=== PATIENT | male | born 1970 | race Caucasian/White ===

== ENCOUNTER 2017-05-29 15:12 | Emergency (ER) | payer MEDICARE, MEDICAID ==
[2017-05-29 16:23] LABS: Hematocrit 40.7 % (42.0-52.0); Hemoglobin 12.3 gm/dL (13.5-18.0); Mean Cell Volume 90.6 fl (78-100); Mean Corpuscular Hemoglobin 27.4 pg (27-31); Mean Corpuscular Hgb Conc 30.2 g/dl (32-36); Mean Platelet Volume 8.4 fl (6.0-9.5); Neutrophil # 6.4 K/mm3 (1.3-6.0); Neutrophil % 74.9 % (42-75.0); Platelet Count 209 K/mm3 (150-450); Red Blood Count 4.49 M/mm3 (4.7-6.0); Red Cell Distribution Width 15.7 % (11.5-14.0); White Blood Count 8.5 K/mm3 (4.0-10.5)
[2017-05-29 16:44] LABS: Albumin * 3.3 gm/dl (3.4-5.0); Anion Gap 8.6 mmol/L (6.8-13.8); BUN/Creatinine Ratio 18.4 (9.0-21.6); Bilirubin, Total 0.2 mg/dL (0.0-1.1); Ca. Corrected For Albumin 9.2 mg/dL (8.4-10.2); Carbon Dioxide 36.3 mmol/L (24-32.6); Magnesium 2.2 mg/dL (1.2-2.8); Potassium 3.9 mmol/L (3.4-4.6); Total Protein 7.7 gm/dL (6.2-8.2); Troponin I 0.031 ng/ml (0.00-0.10)
[2017-05-29 17:46] VITALS: BP 145/82
--- NOTE | 2017-05-29 17:51 | ERNOTE ---
Abdominal HPI - General Chief Complaint: Abdominal Pain Time Seen by Provider: 05/29/17 15:17 Source: patient Exam Limitations: no limitations - Immun/Allergies/Home Medications Immunizatons: IMMUNIZATION HX Immunizations Up to Date Yes History of Influenza Vaccine Yes Hx Pneumococcal Vaccination No Allergies/Adverse Reactions: Allergies No Known Allergies Allergy (Unverified 05/01/12 16:08) per pt Home Medications: HOME MEDICATIONS HYDROcodone/ACETAMINOPHEN [Hydrocodon-Acetaminophen 5-325] 1 tab PO PRN PRN 11/05 [Last Taken 04/02/11 21:00 5/325 PER PT] Mesalamine [Asacol] 800 mg PO TID 05/01/12 [Last Taken Unknown] Metoclopramide HCl [Reglan] 5 mg PO ACHS #28 tab 05/29/17 [Last Taken Unknown] Metolazone [Zaroxolyn] 2.5 mg PO DAILY #7 tablet 05/29/17 [Last Taken Unknown] - History of Present Illness Narrative: Patient complains of increased belching and chronic shortness of breath. Though she has been going on for some time and his shortness of breath for years , most likely secondary to his profound morbid obesity. Timing: constant Quality: moderate Activities at Onset: none Associated Symptoms: Present: denies symptoms Prior Abdominal Problems: Present: none Review of Systems - Review of Systems Constitutional: Present: See HPI EYE: Present: no symptoms reported ENT: Present: no symptoms reported Respiratory: Present: shortness of breath Cardiology: Present: no symptoms reported Gastrointestinal/Abdominal: Present: See HPI - chronic Genitourinary: Present: no symptoms reported Musculoskeletal: Present: no symptoms reported Skin: Present: no symptoms reported Neurological: Present: no symptoms reported Endocrine: Present: no symptoms reported Hematologic/Lymphatic: Present: no symptoms reported Psych: Present: no symptoms reported - Patient's Past Medical History Patient History - Medical: Diabetes Type 2 Patient History - Cardiac/Respiratory: CHF, COPD, Hypertension, Hyperlipidemia Patient History - Cancer: No Hx of Cancer Patient History - Surgical Procedures: No surgical history Patient History - Other: None - Social History Living Situations: home Abuse History: No History of abuse Psych History: No pertinent hx Smoking Status: Former smoker Have you smoked in the past 12 months: No Do you dip or chew tobacco: No Alcohol Use: sober Drug Use: none - Immunizations Immunizations Up to Date: Yes Hx Pneumococcal Vaccination: No History of Influenza Vaccine: Yes Physical Exam - Physical Exam General Appearance: Present: wd/wn, alert, mild distress Head Exam: Present: normal inspection, no evidence of injury Eye Exam: Normal inspection: bilateral, PERRL: bilateral Ears, Nose, Throat: Present: normal ENT inspection, H, normal pharynx Neck: Present: normal inspection, nontender Respiratory: Present: no respiratory distress, normal breath sounds, no accessory muscle use, chest nontender, lungs clear Cardiovascular/Chest: Present: regular rate, rhythm, no murmur, normal peripheral pulses Gastrointestinal/Abdominal: Present: normal bowel sounds, nontender, nondistended, soft, no organomegaly Rectal Exam: Present: deferred Back Exam: Present: normal inspection, normal range of motion Extremity Exam: Present: normal inspection, non-tender, no edema, normal range of motion Neurological Exam: Present: alert, oriented, normal mood/affect Skin Exam: Present: normal color, warm/dry Lymphatic Exam: Present: no adenopathy ED Progress - Results and Orders Patient's Lab Results:: I have reviewed the patient's lab results. - Vital Signs Patient's Vital Signs:: I have reviewed the patient's vital signs. Vital Signs: Vital Signs 05/29/17 05/29/17 05/29/17 15:25 15:30 16:00 Temperature 36.3 C L 36.3 C L Pulse Rate 100 100 95 Respiratory 28 H 28 H 24 H Rate Blood Pressure 195/99 195/99 155/84 O2 Sat by Pulse 96 96 98 Oximetry 05/29/17 05/29/17 05/29/17 16:30 17:00 17:45 Temperature Pulse Rate 99 78 93 Respiratory 22 H 22 H 20 Rate Blood Pressure 147/98 146/78 145/82 O2 Sat by Pulse 98 99 99 Oximetry - X-Ray X-Ray #1 X-Ray: chest Interpretation: Reviewed by me X-Ray #2 X-Ray: abdomen Interpretation: Reviewed by me - Progress/Reassessment Chief Complaint: Abdominal Pain Plan - Plan Plan: Patient has known sleep apnea but has not yet made arrangements for his CPAP machine at home. I am also suspecting that he has some component of gastroparesis secondary to his diabetes. I will put the patient on 3 days of Zaroxolyn and add Reglan to the regimen to help with the gastroparesis and he agrees to follow-up with his family physician this week. Departure Clinical Impression: Gastroparesis due to DM Sleep apnea Qualifiers: Sleep apnea type: obstructive Qualified Code(s): G47.33 - Obstructive sleep apnea (adult) (pediatric) - Departure Disposition: Home self-care Condition: Good Instructions: Sleep Apnea, [id number], Gastroparesis Prescriptions: Metoclopramide HCl [Reglan] 5 mg PO ACHS #28 tab Metolazone [Zaroxolyn] 2.5 mg PO DAILY #7 tablet
== END 2017-05-29 18:00 | disposition home or self-care (01) ==
LOC: ER 15:12
DX: E11.43 Type 2 diabetes mellitus with diabetic autonomic (poly)neuropathy (principal); K31.84 Gastroparesis; G47.33 Obstructive sleep apnea (adult) (pediatric); Z87.891 Personal history of nicotine dependence

== ENCOUNTER 2017-08-02 16:44 | Emergency (ER) | payer MEDICARE, MEDICAID ==
[2017-08-02 18:06] LABS: Hematocrit 44.1 % (42.0-52.0); Mean Cell Volume 87.8 fl (78-100); Mean Corpuscular Hemoglobin 27.9 pg (27-31); Mean Corpuscular Hgb Conc 31.7 g/dl (32-36); Mean Platelet Volume 8.8 fl (6.0-9.5); Neutrophil # 4.7 K/mm3 (1.3-6.0); Neutrophil % 65.5 % (42-75.0); Platelet Count 225 K/mm3 (150-450); Red Blood Count 5.02 M/mm3 (4.7-6.0); Red Cell Distribution Width 16.8 % (11.5-14.0); White Blood Count 7.2 K/mm3 (4.0-10.5)
[2017-08-02 18:19] LABS: ALT 41 U/L (19-67); AST 22 U/L (0-48); Albumin * 3.5 gm/dl (3.4-5.0); Alkaline Phosphatase * 163 U/L (50-170); Anion Gap 7.9 mmol/L (6.8-13.8); BUN/Creatinine Ratio 15.2 (9.0-21.6); Bilirubin, Total 0.2 mg/dL (0.0-1.1); Blood Urea Nitrogen 15 mg/dL (6-23); Ca. Corrected For Albumin 9.6 mg/dL (8.4-10.2); Calcium * 9.5 mg/dL (7.9-10.9); Chloride 104 mmol/L (97-106); Glucose * 180 mg/dL (70-110); Potassium 3.9 mmol/L (3.4-4.6); Sodium 141 mmol/L (132-142)
[2017-08-02 18:38] LABS: Urine Bilirubin Negative (NEGATIVE); Urine Blood Negative /ul (NEGATIVE); Urine Ketone Negative (NEGATIVE); Urine Nitrite Negative (NEGATIVE); Urine Protein Negative (NEGATIVE); Urine Urobilinogen Normal (NORMAL); Urine pH 6.5 pH (5.0-7.0)
--- NOTE | 2017-08-02 18:38 | ERNOTE ---
Medical Problem HPI - Narrative Date of Service: 08/02/17 - General Chief Complaint: Diabetes Related Problem Time Seen by Provider: 08/02/17 17:40 Source: patient Exam Limitations: no limitations - Immun/Allergies/Home Medications Immunizations: IMMUNIZATION HX Immunizations Up to Date Yes History of Influenza Vaccine Yes Hx Pneumococcal Vaccination No Allergies/Adverse Reactions: Allergies No Known Allergies Allergy (Verified 08/02/17 17:15) per pt Home Medications: HOME MEDICATIONS Clotrimazole [Lotrimin AF] 1 appl TP BID #1 cream..g. 06/10/17 [Last Taken Unknown] Albuterol Sulfate [Proair Hfa] 8.5 gm IH Q2H PRN 06/13/17 [Last Taken Unknown] Albuterol Sulfate/Ipratropium [Duoneb 2.5-0.5MG/3ML Soln] 3 ml IH QID 06/13/17 [ Last Taken Unknown] Carvedilol [Coreg] 12.5 mg PO BID 06/13/17 [Last Taken Unknown] Cholecalciferol (Vitamin D3) [Vitamin D3] 50,000 unit PO Q7D 06/13/17 [Last Taken Unknown] Folic Acid 1 mg PO DAILY 06/13/17 [Last Taken Unknown] Nitroglycerin 0.4 mg SL PRN PRN 06/13/17 [Last Taken Unknown] Pantoprazole Sodium [Protonix] 40 mg PO DAILY 06/13/17 [Last Taken Unknown] metFORMIN HCL [Metformin HCl ER] 1,000 mg PO BID 06/13/17 [Last Taken Unknown] sulfaSALAzine [Sulfasalazine Dr] 500 mg PO TID 06/13/17 [Last Taken Unknown] Aspirin [Aspir-Low] 162 mg PO DAILY #30 tablet.dr 06/14/17 [Last Taken Unknown] Atorvastatin Calcium 20 mg PO DAILY #30 tablet 06/14/17 [Last Taken Unknown] Furosemide [Lasix] 60 mg PO BID@0800,1400 #60 tablet 06/14/17 [Last Taken Unknown] Glimepiride [Amaryl] 4 mg PO QDAC #30 tablet 06/14/17 [Last Taken Unknown] Lisinopril [Prinivil] 10 mg PO BID #60 tablet 06/14/17 [Last Taken Unknown] Sennosides/Docusate Sodium [Senokot-S] 2 tab PO HS #30 tablet 06/14/17 [Last Taken Unknown] Spironolactone [Aldactone] 25 mg PO DAILY@0800,1400 #60 tablet 06/14/17 [Last Taken Unknown] traMADol HCL [Ultram] 50 mg PO BID #60 tablet 06/14/17 [Last Taken Unknown] glipiZIDE [Glipizide] 10 mg PO BID 08/02/17 [Last Taken Unknown] glipiZIDE [Glipizide] 10 mg PO BID #20 tablet 08/02/17 [Last Taken Unknown] metFORMIN HCL [Metformin HCl] 1,000 mg PO BID 08/02/17 [Last Taken Unknown] metFORMIN HCL [Metformin HCl] 1,000 mg PO BID #20 tablet 08/02/17 [Last Taken Unknown] - History of Present History Narrative: Patient presents for high blood sugars. He relates he has not been taking his glipizide or metformin. He relates they were not working. He has a appointment with Dr Chambers next week for his blood sugars as he just moved here. His BS was high so he came to the ED. He denies any Sx with this. no CP or SOB, no fever, no vomiting, no abdominal pain. No fever or dysuria. He has no acute complaints other than his blood sugar. Timing: intermittent Severity: mild Modifying Factors - (Improves): Present: other - nothing Modifying Factors - (Worsens): Present: other - nothing Review of Systems - Review of Systems Constitutional: Absent: fever EYE: Absent: vision changes ENT: Absent: sore throat Respiratory: Absent: shortness of breath Cardiology: Absent: chest pain Gastrointestinal/Abdominal: Absent: vomiting, abdominal pain Genitourinary: Absent: dysuria Skin: Present: other - chronic skin changes on his legs, acute rash or change is denied Neurological: Absent: weakness - Patient's Past Medical History Patient History - Medical: Diabetes Type 1, Obesity, Other Patient History - Cardiac/Respiratory: CHF, COPD, Hypertension, Hyperlipidemia, Sleep Apnea Patient History - Cancer: No Hx of Cancer Patient History - Surgical Procedures: No surgical history Patient History - Other: None - Family History Mother Family History - Medical: Diabetes Type 2 Family History - Cardiac/Respiratory: CHF Family History - Cancer: No pertinent family hx Father Family History - Medical: , No pertinent hx - Social History Living Situations: home Abuse History: No History of abuse Psych History: No pertinent hx Smoking Status: Former smoker Alcohol Use: none Drug Use: none - Immunizations Immunizations Up to Date: Yes Hx Pneumococcal Vaccination: No History of Influenza Vaccine: Yes Physical Exam - Physical Exam General Appearance: Present: alert, no apparent distress Head Exam: Present: normal inspection, no evidence of injury Eye Exam: Normal inspection: bilateral, PERRL: bilateral Ears, Nose, Throat: Present: normal ENT inspection Neck: Present: normal inspection Respiratory: Present: no respiratory distress, normal breath sounds, no accessory muscle use, lungs clear Cardiovascular/Chest: Present: regular rate, rhythm Gastrointestinal/Abdominal: Present: normal bowel sounds, nontender, soft Back Exam: Present: normal range of motion Extremity Exam: Present: other - no deformity Neurological Exam: Present: alert, no motor/sensory deficits Skin Exam: Present: normal color, warm/dry, other - no cellulitis noted ED Progress - Results and Orders Patient's Lab Results:: I have reviewed the patient's lab results. - Vital Signs Patient's Vital Signs:: I have reviewed the patient's vital signs. Vital Signs: Vital Signs 08/02/17 17:12 Temperature 36.4 C L Pulse Rate 104 H Respiratory 22 H Rate Blood Pressure 145/119 O2 Sat by Pulse 97 Oximetry - Progress/Reassessment Chief Complaint: Diabetes Related Problem Progress Note-Subjective: 08/02/17 19:22 He did not want to wait here any longer. Was requesting to go home. I will restart his home metformin and glipizde that he is out of for short term until he gets in to see Dr Chambers next week. No other acute life or limb threat found. He states he has the equipment to check his blood sugar at home. Departure Clinical Impression: Has run out of medications, Hyperglycemia - Departure Disposition: Home self-care Condition: Stable Instructions: Hyperglycemia, [id number] Additional Instructions: Rest. Fluids. Take your home medications as directed. Monitor your blood sugat at home as directed. Keep your appointment next week with Dr Chambers. Return if your condition worsens or changes in any way. Referrals: Fab Chambers DO [Primary Care Provider] - Prescriptions: glipiZIDE [Glipizide] 10 mg PO BID #20 tablet metFORMIN HCL [Metformin HCl] 1,000 mg PO BID #20 tablet
[2017-08-02 18:47] LABS: Urine Appearance Clear; Urine Bacteria 3+; Urine Color Yellow; Urine RBC 0-5 /hpf (0-5); Urine WBC 0-5 /hpf (0-5)
[2017-08-02 19:06] VITALS: BP 162/110
== END 2017-08-02 19:36 | disposition home or self-care (01) ==
LOC: ER 16:44
DX: E78.5 Hyperlipidemia, unspecified; R73.9 Hyperglycemia, unspecified; Z87.891 Personal history of nicotine dependence; Z76.0 Encounter for issue of repeat prescription; J44.9 Chronic obstructive pulmonary disease, unspecified; I10 Essential (primary) hypertension; I50.9 Heart failure, unspecified

== ENCOUNTER 2018-09-15 19:00 | Observation (INO) ==
[2018-09-15] MEDS ORDERED: ASPIRIN 81 MG TAB.CHEW PO ONE (19:12)
--- NOTE | 2018-09-15 19:14 | ERNOTE ---
Chest Pain/Cardiac HPI Date of Service: 09/15/18 Chief Complaint: Chest Pain Time Seen by Provider: 09/15/18 19:13 Source: patient Exam Limitations: no limitations Immunizations: IMMUNIZATION HX Immunizations Up to Date Yes History of Influenza Vaccine Yes Hx Pneumococcal Vaccination Yes Allergies/Adverse Reactions: Allergies No Known Allergies Allergy (Verified 09/04/18 13:39) per pt Home Medications: HOME MEDICATIONS Cholecalciferol (Vitamin D3) [Vitamin D3] 1,000 unit PO DAILY 09/11/17 [Last Taken 01/10/18] Acetaminophen [Tylenol] 650 mg PO Q6H PRN tab 09/12/17 [Last Taken 01/11/18] Albuterol Sulfate [Ventolin HFA] 2 puff IH Q4H PRN #1 inhaler 09/12/17 [Last Taken 01/07/18] Nitroglycerin 0.4 mg SL PRN PRN #25 tab.subl 09/12/17 [Last Taken 01/11/18] diphenoxylate-atropine 2.5 mg-0.025 mg tablet 1 tab PO Q6H PRN #60 tab 01/12/18 [Last Taken Unknown] carvedilol 12.5 mg tablet 12.5 mg PO DAILY #30 tab 05/11/18 [Last Taken Unknown] glipizide 5 mg tablet 5 mg PO BID #60 tab 05/11/18 [Last Taken Unknown] omeprazole 40 mg capsule,delayed release 40 mg PO DAILY #30 cap 05/11/18 [Last Taken Unknown] pregabalin 300 mg capsule 300 mg PO BID #0.1 cap 05/30/18 [Last Taken Unknown] Loperamide HCl [Imodium A-D] 2 mg PO BID #60 tab 06/25/18 [Last Taken Unknown] lancets 18 gauge See Dose Instructions .ROUTE .MEDSUPPLY #100 ea 08/30/18 [Last Taken Unknown] atorvastatin 20 mg tablet 20 mg PO HS #30 tab 09/04/18 [Last Taken Unknown] dicyclomine 20 mg tablet 20 mg PO QID #120 tab 09/04/18 [Last Taken Unknown] insulin detemir (U-100) 100 unit/mL (3 mL) subcutaneous pen 25 unit SUBCUT HS #15 ml 09/04/18 [Last Taken Unknown] lisinopril 20 mg tablet 20 mg PO DAILY #30 tab 09/04/18 [Last Taken Unknown] metformin 500 mg tablet 500 mg PO BID #60 tab 09/04/18 [Last Taken Unknown] potassium chloride ER 20 mEq tablet,extended release(part/cryst) 20 meq PO DAILY #30 tablet.sa 09/04/18 [Last Taken Unknown] sulfasalazine 500 mg tablet,delayed release See Rx Instructions PO .COMPLEX #270 tab 09/04/18 [Last Taken Unknown] pen needle, diabetic 31 gauge x 5/16" See Dose Instructions .ROUTE .MEDSUPPLY #100 ea 09/05/18 [Last Taken Unknown] Aspirin [Aspir-Low] 81 mg PO DAILY 09/15/18 [Last Taken Unknown] Furosemide [Lasix] 80 mg PO BID 09/15/18 [Last Taken Unknown] Pain Score #1 Pain Score: 7 Narrative: The patient is a 48 year old male who presents for left anterior chest heaviness which has been present for 2 hours. There are associated symptoms of dyspnea and diarrhea. The patient reports left anterior chest heaviness, 01/03. There are no alleviating factors. There are no aggravating factors. Previous treatments have included: Nitro x3 tabs at home without improvement. The past medical history includes: COPD, GERD, DM, CHF, pacemaker, HLD and arthritis. The social history is positive for former smoker. The patient has had no known ill contacts. Patient states he was watching TV when chest heaviness began. Patient denies weight gain and states he has lost 20 pounds over the past few months. Review of Systems - Review of Systems Constitutional: Present: fatigue. Absent: recent illness, fever EYE: Present: no symptoms reported ENT: Present: no symptoms reported. Absent: ear pain, nose congestion, nasal drainage, sore throat Respiratory: Present: shortness of breath. Absent: cough Cardiology: Present: chest pain. Absent: edema Gastrointestinal/Abdominal: Present: diarrhea. Absent: nausea, vomiting, abdominal pain Genitourinary: Present: no symptoms reported. Absent: dysuria Musculoskeletal: Present: no symptoms reported Skin: Present: no symptoms reported. 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 Maxed out on the Sulfonourea and can not increase the Metformin due to diarrhea. 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 Onset Date: Unknown Bilateral primary osteoarthritis of knee Onset Date: ~06/24/17 COPD (chronic obstructive pulmonary disease) Onset Date: Unknown Chronic GERD Hyperlipidemia due to dietary fat intake Surgical History: Surgical History (Last Reviewed 09/15/18 @ 19:20 by VU Monterroso) History of placement of internal cardiac defibrillator Onset Date: 03/28/18 Hx of colonoscopy Onset Date: Unknown Has had x7 for ulcerative colitis Hx of flexible sigmoidoscopy Onset Date: ~04/07/12 Hx of right and left heart catheterization Onset Date: Unknown Family History: Family History (Last Reviewed 09/15/18 @ 19:20 by VU Monterroso) Brother Diabetes Hypertension Hyperlipemia Father , @ 65 Myocardial infarction Mother Diabetes Heart disease Sister Seizures Social History: Preferred Language Estonian Smoking Status Former smoker Abuse History No History of abuse Psych History No pertinent hx Alcohol Use none Drug Use none (Last Updated 09/04/18 @ 15:01 by Fab Chambers DO) No Social History Section defined Physical Exam - Physical Exam General Appearance: Present: wd/wn, alert, no apparent distress Head Exam: Present: normal inspection Eye Exam: Normal inspection: bilateral Neck: Present: normal inspection, nontender Respiratory: Present: no respiratory distress, normal breath sounds, no accessory muscle use, chest nontender, lungs clear Cardiovascular/Chest: Present: regular rate, rhythm Gastrointestinal/Abdominal: Present: normal bowel sounds, nontender, nondistended, soft, no organomegaly Extremity Exam: Present: no edema Neurological Exam: Present: alert, oriented, normal mood/affect Skin Exam: Present: normal color, warm/dry Progress - Date and Time Seen: Date and Time: 09/15/18 19:38 PERC rule negative. 09/15/18 20:10 Discussed case with and will admit for observation chest pain. Pain 08/06 upon admission. - Results and Orders Patient's Lab Results:: I have reviewed the patient's lab results. - Vital Signs Patient's Vital Signs:: I have reviewed the patient's vital signs. Vital Signs: Vital Signs 09/15/18 19:03 Pulse Rate 86 Respiratory Rate 14 Blood Pressure 140/81 H O2 Sat by Pulse Oximetry 100 - EKG EKG #1 EKG: NSR EKG read: Reviewed by me - X-Ray X-Ray #1 X-Ray: chest Interpretation: Reviewed by me X-ray Comments: No acute cardiopulmonary abnormalities. Pacemaker present to left anterior chest. - Progress/Reassessment Chief Complaint: Chest Pain Progress:: Improved Departure Clinical Impression: Chest pain Qualifiers: Chest pain type: unspecified Qualified Code(s): R07.9 - Chest pain, unspecified - Departure Disposition: Still a patient Condition: Good
[2018-09-15 19:40] LABS: Hematocrit 37.5 % (42.0-52.0); Hemoglobin 11.9 gm/dL (13.5-18.0); Mean Cell Volume 96.4 fl (78-100); Mean Corpuscular Hemoglobin 30.6 pg (27-31); Mean Corpuscular Hgb Conc 31.7 g/dl (32-36); Mean Platelet Volume 8.5 fl (8-11.3); Neutrophil # 3.9 K/mm3 (1.3-6.0); Platelet Count 275 K/mm3 (150-450); Red Blood Count 3.89 M/mm3 (4.7-6.0); Red Cell Distribution Width 15.2 % (11.5-14.0); White Blood Count 6.7 K/mm3 (4.0-10.5)
[2018-09-15 19:43] LABS: Prothrombin Time (Patient) 10.1 Seconds (9.1-10.7)
[2018-09-15 19:47] LABS: INR 1.02 INR (0.92-1.08)
[2018-09-15 20:02] LABS: ALT 19 U/L (19-67); AST 17 U/L (0-48); Albumin * 3.4 gm/dl (3.4-5.0); Alkaline Phosphatase * 143 U/L (50-170); Anion Gap 12.3 mmol/L (6.8-13.8); BNP * 45 pg/mL (5-140); BUN/Creatinine Ratio 11.7 (9.0-21.6); Bilirubin, Total 0.2 mg/dL (0.0-1.1); Blood Urea Nitrogen 13 mg/dL (6-23); Ca. Corrected For Albumin 9.2 mg/dL (8.4-10.2); Carbon Dioxide 29.9 mmol/L (24-32.6); Chloride 102 mmol/L (97-106); Glucose * 110 mg/dL (70-110); Potassium 3.2 mmol/L (3.4-4.6); Sodium 141 mmol/L (132-142); Total Protein 7.7 gm/dL (6.2-8.2)
[2018-09-15 20:04] LABS: Troponin I Less than 0.017 ng/mL (0.00-0.10)
[2018-09-15] MEDS ORDERED: POTASSIUM CHLORIDE 20 MEQ TABLET.SA PO ONE (20:33)
[2018-09-15] MEDS ORDERED: NITROGLYCERIN 0.4 MG/TAB BTL SL PRN (20:38)
[2018-09-15] MEDS ORDERED: ALBUTEROL SULFATE 200 PUFF INHALER IH PRN (20:38)
[2018-09-15] MEDS ORDERED: DIPHENOXYLATE HCL/ATROP SULF 2.5 MG TABLET PO PRN (20:38)
[2018-09-15] MEDS ORDERED: ACETAMINOPHEN 325 MG TABLET PO PRN (20:38)
--- NOTE | 2018-09-15 21:06 | HP ---
Chief Complaint - Chief Complaint Date of Service: 09/15/18 Time of Service: 20:51 Chief Complaint: I chest pain that started this evening History of Present Illness: 48-year-old male with past medical history of ulcerative colitis, CHF, COPD, hyperlipidemia, CAD, GERD, type 2 diabetes, ICD placement, hypertension, came to our ER due to left-sided retrosternal chest pain of 7 out of 10 intensity radiating to the right side of his neck. Patient reports he had just returned from a [address] trip and was preparing to go to bed, when suddenly while sitting down he started feeling chest heaviness accompanied by mild shortness of breath. He denies any alleviating or aggravating factors. Patient has an extensive cardiac history and sees a duplication specialist who prescribed him nitroglycerin in case of chest pain. Patient reports that he took 3 doses of nitroglycerin but the chest discomfort did not improve and that when he decided to come to the ER. Medical History (Last Reviewed 09/15/18 @ 19:20 by VU Monterroso) Gastroparesis due to DM (Chronic) CHF due to valvular disease (Chronic) Edema extremities (Chronic) Uncontrolled diabetes mellitus (Chronic) BSs in the 200. Maxed out on the Sulfonourea and can not increase the Metformin due to diarrhea. Pacemaker (Chronic) Gastro-esophageal reflux disease with esophagitis (Chronic) Chest pain (Resolved) Chest pain made worse by breathing (Resolved) Chest wall pain following surgery (Resolved) Colitis Obesity, morbid (more than 100 lbs over ideal weight or BMI > 40) Onset Date: Unknown BMI 40.0 -49.9 Pacemaker Tachycardia Type 2 diabetes mellitus colitis Arthritis Onset Date: Unknown Atherosclerotic heart disease [place] coronary artery w/angina pectoris Onset Date: Unknown Bilateral primary osteoarthritis of knee Onset Date: ~06/24/17 COPD (chronic obstructive pulmonary disease) Onset Date: Unknown Chronic GERD Hyperlipidemia due to dietary fat intake Surgical History: Surgical History (Last Reviewed 09/15/18 @ 19:20 by VU Monterroso) History of placement of internal cardiac defibrillator Onset Date: 03/28/18 Hx of colonoscopy Onset Date: Unknown Has had x7 for ulcerative colitis Hx of flexible sigmoidoscopy Onset Date: ~04/07/12 Hx of right and left heart catheterization Onset Date: Unknown Family History: Family History (Last Reviewed 09/15/18 @ 19:20 by VU Monterroso) Brother Diabetes Hypertension Hyperlipemia Father , @ 65 Myocardial infarction Mother Diabetes Heart disease Sister Seizures Social History: Preferred Language Honduran Smoking Status Former smoker Abuse History No History of abuse Psych History No pertinent hx Alcohol Use none Drug Use none (Last Updated 09/04/18 @ 15:01 by Fab Chambers DO) No Social History Section defined Review Of Systems (GEN) - Review of Systems Generalized/Overall Review: Present: No Symptoms Reported EENTM: Present: No Symptoms Reported Respiratory: Present: Shortness of Breath Cardiac: Present: Chest Pain Abdominal: Present: No Symptoms Reported Genitourinary: Present: No Symptoms Reported Musculoskeletal: Present: No Symptoms Reported Neurological: Present: No Symptoms Reported Skin: Present: No Symptoms Reported Endocrine: Present: No Symptoms Reported Immunizations: IMMUNIZATION HX Immunizations Up to Date Yes History of Influenza Vaccine Yes Hx Pneumococcal Vaccination Yes Allergies/Adverse Reactions: Allergies Allergy/AdvReac Type Severity Reaction Status Date / Time No Known Allergies Allergy Verified 09/04/18 13:39 Home Medications: HOME MEDICATIONS Cholecalciferol (Vitamin D3) [Vitamin D3] 1,000 unit PO DAILY 09/11/17 [Last Taken 01/10/18] Acetaminophen [Tylenol] 650 mg PO Q6H PRN tab 09/12/17 [Last Taken 01/11/18] Albuterol Sulfate [Ventolin HFA] 2 puff IH Q4H PRN #1 inhaler 09/12/17 [Last Taken 01/07/18] Nitroglycerin 0.4 mg SL PRN PRN #25 tab.subl 09/12/17 [Last Taken 01/11/18] diphenoxylate-atropine 2.5 mg-0.025 mg tablet 1 tab PO Q6H PRN #60 tab 01/12/18 [Last Taken Unknown] carvedilol 12.5 mg tablet 12.5 mg PO DAILY #30 tab 05/11/18 [Last Taken Unknown] glipizide 5 mg tablet 5 mg PO BID #60 tab 05/11/18 [Last Taken Unknown] omeprazole 40 mg capsule,delayed release 40 mg PO DAILY #30 cap 05/11/18 [Last Taken Unknown] pregabalin 300 mg capsule 300 mg PO BID #0.1 cap 05/30/18 [Last Taken Unknown] Loperamide HCl [Imodium A-D] 2 mg PO BID #60 tab 06/25/18 [Last Taken Unknown] lancets 18 gauge See Dose Instructions .ROUTE .MEDSUPPLY #100 ea 08/30/18 [Last Taken Unknown] atorvastatin 20 mg tablet 20 mg PO HS #30 tab 09/04/18 [Last Taken Unknown] dicyclomine 20 mg tablet 20 mg PO QID #120 tab 09/04/18 [Last Taken Unknown] insulin detemir (U-100) 100 unit/mL (3 mL) subcutaneous pen 25 unit SUBCUT HS #15 ml 09/04/18 [Last Taken Unknown] lisinopril 20 mg tablet 20 mg PO DAILY #30 tab 09/04/18 [Last Taken Unknown] metformin 500 mg tablet 500 mg PO BID #60 tab 09/04/18 [Last Taken Unknown] potassium chloride ER 20 mEq tablet,extended release(part/cryst) 20 meq PO DAILY #30 tablet.sa 09/04/18 [Last Taken Unknown] sulfasalazine 500 mg tablet,delayed release See Rx Instructions PO .COMPLEX #270 tab 09/04/18 [Last Taken Unknown] pen needle, diabetic 31 gauge x 5/16" See Dose Instructions .ROUTE .MEDSUPPLY #100 ea 09/05/18 [Last Taken Unknown] Aspirin [Aspir-Low] 81 mg PO DAILY 09/15/18 [Last Taken Unknown] Furosemide [Lasix] 80 mg PO BID 09/15/18 [Last Taken Unknown] Exam - Exam Vital Signs: Vital Signs - Last Taken Temp 36.0 C 09/15/18 20:34 Pulse 82 09/15/18 20:34 Resp 16 09/15/18 20:34 BP 113/71 09/15/18 20:34 Pulse Ox 98 09/15/18 20:34 Constitutional: Present: Alert, Oriented x3, Cooperative, Well developed, Well nourished, No distress, Morbidly obese ENT Exam: Present: normal ENT inspection, hearing grossly normal, pharynx normal, TMs normal Eye Exam: bilateral eye: normal inspection, PERRL, EOMI Neck: Present: non-tender, full range of motion, supple, normal inspection, trachea midline Back Exam: Present: normal inspection, no CVA tenderness, no vertebral tenderness Breasts: Present: Exam deferred Respiratory: Present: chest non-tender, lungs clear, normal breath sounds, no respiratory distress, no accessory muscle use Cardiovascular/Chest: Present: normal peripheral pulses, regular rate, rhythm, no chest tenderness, no edema, no gallop, no JVD, no murmur Peripheral Pulses: carotid (R): 3+, carotid (L): 3+, femoral (R): 3+, femoral (L): 3+, dorsalis-pedis (R): 3+, dorsalis-pedis (L): 3+ Abdomen: Present: Normal bowel sounds, soft, nondistended, no rebound tenderness, no hepatospenomegaly, no masses, obese, tender - Lower abdominal tenderness /Rectal: Present: Exam deferred Extremity: Present: normal range of motion, non-tender, normal inspection, no pedal edema, no calf tenderness Skin Exam: Present: normal color, warm/dry, no cyanosis Lymphatic: Present: no adenopathy 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, normal cerebellar test, no motor/sensory deficits, alert, normal mood/affect, oriented x 3 Appearance: Present: appropriate appearance, appropriate insight, neat, no memory impairment Eye contact: Present: cooperative, good eye contact, normal speech Thoughts: Present: normal thought pattern Diagnostic Studies: Abnormal Lab Results 09/15/18 09/15/18 Range/Units 19:35 19:35 RBC 3.89 L (4.7-6.0) M/mm3 Hgb 11.9 L (13.5-18.0) gm/dL Hct 37.5 L (42.0-52.0) % MCHC 31.7 L (32-36) g/dl RDW 15.2 H (11.5-14.0) % Monocytes % 13.6 H (0.0-9) % Eosinophils % 3.1 H (0.0-3.0) % Potassium 3.2 L (3.4-4.6) mmol/L Laboratory Results WBC 6.7 K/mm3 (4.0-10.5) 09/15/18 19:35 RBC 3.89 M/mm3 (4.7-6.0) L 09/15/18 19:35 Hgb 11.9 gm/dL (13.5-18.0) L 09/15/18 19:35 Hct 37.5 % (42.0-52.0) L 09/15/18 19:35 MCV 96.4 fl (78-100) 09/15/18 19: MCH 30.6 pg (27-31) 09/15/18 19: MCHC 31.7 g/dl (32-36) L 09/15/18 19:35 RDW 15.2 % (11.5-14.0) H 09/15/18 19:35 Plt Count 275 K/mm3 (150-450) 09/15/18 19: MPV 8.5 fl (8-11.3) 09/15/18 19:35 Immature Gran % (Auto) 0.40 % (0.001-0.429) 09/15/18: Immature Gran # (Auto) 0.03 K/mm3 (0.000-0.0310) 09/15/18 19:35 Neutrophils % 58.0 % (42-75.0) 09/15/18 19:35 Lymphocytes % 24.0 % (20-51) 09/15/18 19:35 Monocytes % 13.6 % (0.0-9) H 09/15/18 19:35 Eosinophils % 3.1 % (0.0-3.0) H 09/15/18: Basophils % 0.9 % (0.0-1.0) 09/15/18: Nucleated RBC % 0.0 k/mm3 (0-1) 09/15/18 19: Neutrophils # 3.9 K/mm3 (1.3-6.0) 09/15/18 19: Lymphocytes # 1.60 k/mm3 (1.5-3.5) 09/15/18 19: Monocytes # 0.9 k/mm3 (0.0-1.0) 09/15/18 19: Eosinophils # 0.2 k/mm3 (0.0-0.7) 09/15/18 19: Absolute Basophils 0.1 k/mm3 (0.0-0.1) 09/15/18 19:35 PT 10.1 Seconds (9.1-10.7) 09/15/18 19:20 INR (Anticoag Therapy) 1.02 INR (0.92-1.08) 09/15/18 19:20 PTT ([place]) 26.0 Seconds (24-32) 09/15/18 19:20 Sodium 141 mmol/L (132-142) 09/15/18 19:35 Plasma Sodium 141 mmol/L (130-142) 09/15/18 19:35 Potassium 3.2 mmol/L (3.4-4.6) L 09/15/18 19:35 Chloride 102 mmol/L (97-106) 09/15/18 19:35 Carbon Dioxide 29.9 mmol/L (24-32.6) 09/15/18 19:35 Anion Gap 12.3 mmol/L (6.8-13.8) 09/15/18 19:35 BUN 13 mg/dL (6-23) 09/15/18 19:35 Creatinine 1.11 mg/dL (0.4-1.4) 09/15/18 19:35 Est GFR (Non-Af Amer) 75 mL/min (60-130) 09/15/18 19:35 BUN/Creatinine Ratio 11.7 (9.0-21.6) 09/15/18 19:35 Random Glucose 110 mg/dL (70-110) 09/15/18 19:35 Calcium 9.0 mg/dL (7.9-10.9) 09/15/18 19:35 Calcium Adj for Albumin 9.2 mg/dL (8.4-10.2) 09/15/18 19:35 Total Bilirubin 0.2 mg/dL (0.0-1.1) 09/15/18 19:35 AST 17 U/L (0-48) 09/15/18 19:35 ALT 19 U/L (19-67) 09/15/18 19:35 Alkaline Phosphatase 143 U/L (50-170) 09/15/18 19:35 Troponin I Less than 0.017 ng/mL (0.00-0.10) 09/15/18 19:35 B-Natriuretic Peptide 45 pg/mL (5-140) 09/15/18 19:35 Total Protein 7.7 gm/dL (6.2-8.2) 09/15/18 19:35 Albumin 3.4 gm/dl (3.4-5.0) 09/15/18 19:35 Assessment/Plan - Narrative Narrative: After evaluating patient and the medical record decision to admit patient to observation for the ruling out of myocardial infarction was taken. Patient was was administered aspirin in the ER as well as nitroglycerin and since then he reports resolution of chest pain and shortness of breath. Vitals remained stable and patient does not present any new symptoms. He was placed on telemetry and cardiac troponins were ordered, the first 1 was negative so repeat troponin was ordered. EKG demonstrated a normal sinus rhythm with adequate rate. We will reevaluate next set of troponins and patient in the morning. In the meantime patient will be administered his usual home medications and we will monitor him closely. - Assessment/Plan (1) Chest pain due to coronary artery disease Problem: Acute (2) Diabetes 1.5, managed as type 2 Problem: Acute (3) Morbid obesity due to excess calories Problem: Acute (4) Ruled out for myocardial infarction Problem: Acute
[2018-09-15] MEDS ORDERED: ROSUVASTATIN CALCIUM 10 MG TABLET PO SCH (21:15)
[2018-09-15] MEDS ORDERED: PREGABALIN 75 MG CAPSULE PO SCH (21:30)
[2018-09-15] MEDS ORDERED: INSULIN DETEMIR 100 UNITS/ML VIAL SC SCH (21:30)
[2018-09-15] MEDS ORDERED: POTASSIUM CHLORIDE 20 MEQ TABLET.SA ONE (23:01)
[2018-09-15] MEDS: FUROSEMIDE 80 MG TABLET PO SCH (23:10)
[2018-09-15] MEDS: metFORMIN HCL 500 MG TABLET PO SCH (23:10)
[2018-09-15] MEDS: glipiZIDE 5 MG TABLET PO SCH (23:11)
[2018-09-15] MEDS: CHOLECALCIFEROL 1,000 UNIT CAPSULE PO SCH (23:11)
[2018-09-15] MEDS: DICYCLOMINE HCL 20 MG TABLET PO SCH (23:19)
[2018-09-16] MEDS ORDERED: OMEPRAZOLE 20 MG CAPSULE.SA PO SCH ×2 (07:00)
[2018-09-16] MEDS ORDERED: PANTOPRAZOLE SODIUM 40 MG TABLET.EC PO SCH (07:00)
[2018-09-16] MEDS ORDERED: sulfaSALAzine 500 MG TABLET PO SCH (09:00)
[2018-09-16] MEDS ORDERED: CARVEDILOL 12.5 MG TABLET PO SCH (09:00)
[2018-09-16] MEDS ORDERED: LISINOPRIL 20 MG TABLET PO SCH (09:00)
[2018-09-16] MEDS ORDERED: glipiZIDE 5 MG TABLET PO SCH (09:00)
[2018-09-16] MEDS ORDERED: POTASSIUM CHLORIDE 20 MEQ TABLET.SA PO SCH (09:00)
[2018-09-16] MEDS ORDERED: ASPIRIN 81 MG TABLET.DR PO SCH (09:00)
[2018-09-16] MEDS ORDERED: LOPERAMIDE HCL 2 MG CAPSULE PO SCH (09:00)
[2018-09-16] MEDS: DICYCLOMINE HCL 20 MG TABLET PO SCH (09:18)
[2018-09-16] MEDS: metFORMIN HCL 500 MG TABLET PO SCH (09:18)
[2018-09-16] MEDS: FUROSEMIDE 80 MG TABLET PO SCH (09:19)
[2018-09-16] MEDS: CHOLECALCIFEROL 1,000 UNIT CAPSULE PO SCH (09:19)
[2018-09-16] MEDS: glipiZIDE 5 MG TABLET PO SCH (09:20)
--- NOTE | 2018-09-16 09:54 | DS ---
(1) Chest pain due to coronary artery disease Problem: Resolved (2) Diabetes 1.5, managed as type 2 Problem: Chronic (3) Morbid obesity due to excess calories Problem: Chronic (4) Ruled out for myocardial infarction Problem: Ruled-out Description of Stay: 48-year-old male admitted for chest pain rule out myocardial infarction was evaluated at bedside and was found to be afebrile and in no acute distress. Patient reports significant improvement and complete resolution of his chest pain as well as his shortness of breath. He said he had a good night and denies any new symptoms. Follow-up cardiac enzymes were negative as well as EKG. Therefore given these findings decision to discharge patient home with instructions to continue his routine medications and to follow-up with his PCP was taken. Procedures Performed: none Results and Findings: Lab Pending Results 09/15/18 19:20: PT 10.1, INR (Anticoag Therapy) 1.02, PTT ([place]) 26.0 09/15/18 19:35: WBC 6.7, RBC 3.89 L, Hgb 11.9 L, Hct 37.5 L, MCV 96.4, MCH 30.6, MCHC 31.7 L, RDW 15.2 H, Plt Count 275, MPV 8.5, Immature Gran % (Auto) 0.40, Immature Gran # (Auto) 0.03, Neutrophils % 58.0, Lymphocytes % 24.0, Monocytes % 13.6 H, Eosinophils % 3.1 H, Basophils % 0.9, Nucleated RBC % 0.0, Neutrophils # 3.9, Lymphocytes # 1.60, Monocytes # 0.9, Eosinophils # 0.2, Absolute Basophils 0.1 09/15/18 19:35: Sodium 141, Plasma Sodium 141, Potassium 3.2 L, Chloride 102, Carbon Dioxide 29.9, Anion Gap 12.3, BUN 13, Creatinine 1.11, Est GFR (Non-Af Amer) 75, BUN/Creatinine Ratio 11.7, Random Glucose 110, Calcium 9.0, Calcium Adj for Albumin 9.2, Total Bilirubin 0.2, AST 17, ALT 19, Alkaline Phosphatase 143, Troponin I Less than 0.017, B-Natriuretic Peptide 45, Total Protein 7.7, Albumin 3.4 09/16/18 02:00: Troponin I Less than 0.017 Discharge Location: Home Disposition: Home self-care Condition: Good Discharge Activity: Activity as tolerated Discharge Diet: Consistent carbs Referrals: Fab Chambers DO [Primary Care Provider] - Complete Home Medications List: Complete Home Medication List: Cholecalciferol (Vitamin D3) [Vitamin D3] 1,000 unit PO DAILY 09/11/17 Acetaminophen [Tylenol] 650 mg PO Q6H PRN tab 09/12/17 Albuterol Sulfate [Ventolin HFA] 2 puff IH Q4H PRN #1 inhaler 09/12/17 Nitroglycerin 0.4 mg SL PRN PRN #25 tab.subl 09/12/17 diphenoxylate-atropine 2.5 mg-0.025 mg tablet 1 tab PO Q6H PRN #60 tab 01/12/18 carvedilol 12.5 mg tablet 12.5 mg PO DAILY #30 tab 05/11/18 Loperamide HCl [Imodium A-D] 2 mg PO BID #60 tab 06/25/18 lancets 18 gauge See Dose Instructions .ROUTE .MEDSUPPLY #100 ea 08/30/18 atorvastatin 20 mg tablet 20 mg PO HS #30 tab 09/04/18 dicyclomine 20 mg tablet 20 mg PO QID #120 tab 09/04/18 insulin detemir (U-100) 100 unit/mL (3 mL) subcutaneous pen 25 unit SUBCUT HS #15 ml 09/04/18 lisinopril 20 mg tablet 20 mg PO DAILY #30 tab 09/04/18 metformin 500 mg tablet 500 mg PO BID #60 tab 09/04/18 potassium chloride ER 20 mEq tablet,extended release(part/cryst) 20 meq PO DAILY #30 tablet.sa 09/04/18 pen needle, diabetic 31 gauge x 5/16" See Dose Instructions .ROUTE .MEDSUPPLY #100 ea 09/05/18 Aspirin [Aspir-Low] 81 mg PO DAILY 09/15/18 Furosemide [Lasix] 80 mg PO BID 09/15/18 Omeprazole 40 mg PO DAILY 09/15/18 glipiZIDE [Glipizide] 5 mg PO BID 09/15/18 sulfaSALAzine [Azulfidine] 1,500 mg PO TID 09/15/18
[2018-09-16 10:33] VITALS: BP 127/87
== END 2018-09-16 10:35 | disposition home or self-care (01) ==
LOC: MS 19:00 → ER 19:00 → MS 20:19
PROVIDERS: ADMIT Family Medicine; ATTEND Family Medicine
CPT/HCPCS: 36415; 71020; 71046; 80053; 83519; 83880; 84484; 85025; 85610; 85730; 93005; 94660; 96372; 99285; G0378

== ENCOUNTER 2018-11-11 17:57 | Observation (INO) ==
[2018-11-11] MEDS ORDERED: ASPIRIN 81 MG TAB.CHEW PO ONE (18:13)
--- NOTE | 2018-11-11 18:16 | ERNOTE ---
Medical Problem HPI - Narrative Date of Service: 11/11/18 - General Chief Complaint: Diabetes Related Problem Time Seen by Provider: 11/11/18 18:08 Source: patient Exam Limitations: no limitations - Immun/Allergies/Home Medications Immunizations: IMMUNIZATION HX Immunizations Up to Date Yes History of Influenza Vaccine Yes Hx Pneumococcal Vaccination No Allergies/Adverse Reactions: Allergies No Known Allergies Allergy (Verified 11/11/18 18:03) per pt Home Medications: HOME MEDICATIONS Cholecalciferol (Vitamin D3) [Vitamin D3] 1,000 unit PO DAILY 09/11/17 [Last Taken 01/10/18] Albuterol Sulfate [Ventolin HFA] 2 puff IH Q4H PRN #1 inhaler 09/12/17 [Last Taken 01/07/18] Nitroglycerin 0.4 mg SL PRN PRN #25 tab.subl 09/12/17 [Last Taken 01/11/18] atorvastatin 20 mg tablet 20 mg PO HS #30 tab 09/04/18 [Last Taken Unknown] insulin detemir (U-100) 100 unit/mL (3 mL) subcutaneous pen 25 unit SUBCUT HS #15 ml 09/04/18 [Last Taken Unknown] lisinopril 20 mg tablet 20 mg PO DAILY #30 tab 09/04/18 [Last Taken Unknown] potassium chloride ER 20 mEq tablet,extended release(part/cryst) 20 meq PO DAILY #30 tablet.sa 09/04/18 [Last Taken Unknown] Aspirin [Aspir-Low] 81 mg PO DAILY 09/15/18 [Last Taken Unknown] glipiZIDE [Glipizide] 5 mg PO BID 09/15/18 [Last Taken Unknown] metformin 500 mg tablet 500 mg PO BID #60 tab 09/27/18 [Last Taken Unknown] carvedilol 12.5 mg tablet 12.5 mg PO DAILY #30 tab 09/28/18 [Last Taken Unknown] dicyclomine 20 mg tablet 20 mg PO QID #120 tab 09/28/18 [Last Taken Unknown] fenoprofen 600 mg tablet 600 mg PO TID #90 tab 09/28/18 [Last Taken Unknown] omeprazole 40 mg capsule,delayed release 40 mg PO DAILY #30 cap 09/28/18 [Last Taken Unknown] sulfasalazine 500 mg tablet 1,500 mg PO TID #270 tab 09/28/18 [Last Taken Unknown] acetaminophen 325 mg tablet 650 mg PO Q6H PRN #90 tab 10/23/18 [Last Taken Unknown] Hydrocortisone Acetate [Anusol Hc Suppository] 25 mg RC BID #28 supp.rect 10/25/18 [Last Taken Unknown] furosemide 80 mg tablet 80 mg PO BID #60 tab 10/27/18 [Last Taken Unknown] spironolactone 25 mg tablet See Rx Instructions .ROUTE .COMPLEX #60 tablet 11/03/18 [Last Taken Unknown] - History of Present History Narrative: 48 yr old male with extensive PMH including chest pain, gastroparesis secondary to DM type 2, CAD with angina, COPD, GERD, morbid obesity, CHF due to valvular disease and s/p ICD placement presents via EMS after an episode of hypoglycemia. States he was taking a nap and awakened sweating. He checked his blood sugar and it was 58. When he rechecked it his blood sugar was 31. Accu check on arrival here was 95. States he ate some peanut butter at home when he felt his blood sugar getting low. When he was working on getting his blood sugar up he started having left sided chest pain assoicated with SOB. Denied any nausea, diaphoresis or dizziness. His chest pain lasted for one hour. He rated it 7/10. Denies any presently. States he frequently gets "twinges" of left sided chest pain. He has Nitroglycerin at home, but did not take it. Arterial risk factors: Diabetes mellitus type 2, hyperlipidemia, HTN and family history of cardiac disease. Father of an IN at age 67. Patient quit smoking 30 years ago and quit drinking alcohol 20 yrs ago. Last Hgb A1C was 8.4 on 05/14. He was admitted approximately 2 months ago over night for C/P. Date (Duration): 11/11/18 Time (Timing): 18:08 Timing: gone now Severity: moderate Review of Systems - Review of Systems Constitutional: Absent: recent illness, diaphoresis EYE: Present: no symptoms reported ENT: Present: no symptoms reported Respiratory: Present: shortness of breath - earlier, none now. Absent: cough, wheezing Cardiology: Present: chest pain. 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 Maxed out on the Sulfonourea and can not increase the Metformin due to diarrhea. Pacemaker (Chronic) Gastro-esophageal reflux disease with esophagitis (Chronic) Chest pain (Resolved) Chest pain made worse by breathing (Resolved) Chest wall pain following surgery (Resolved) Colitis Obesity, morbid (more than 100 lbs over ideal weight or BMI > 40) Onset Date: Unknown BMI 40.0 -49.9 Pacemaker Tachycardia Type 2 diabetes mellitus colitis Arthritis Onset Date: Unknown Atherosclerotic heart disease [place] coronary artery w/angina pectoris Onset Date: Unknown Bilateral primary osteoarthritis of knee Onset Date: ~06/24/17 COPD (chronic obstructive pulmonary disease) Onset Date: Unknown Chronic GERD Hyperlipidemia due to dietary fat intake Surgical History: Surgical History (Updated 09/16/18 @ 09:53 by Wen Pena MD) History of placement of internal cardiac defibrillator Onset Date: 03/28/18 Hx of colonoscopy Onset Date: Unknown Has had x7 for ulcerative colitis Hx of flexible sigmoidoscopy Onset Date: ~04/07/12 Hx of right and left heart catheterization Onset Date: Unknown Family History: Family History (Updated 01/02/18 @ 08:27 by Tamy Hughes CMA) Brother Diabetes Hypertension Hyperlipemia Father , @ 65 Myocardial infarction Mother Diabetes Heart disease Sister Seizures Social History: Preferred Language Maori Do you have any gnosticist or No cultural preference? Smoking Status Never smoker Abuse History No History of abuse Psych History No pertinent hx Alcohol Use none Drug Use none (Last Updated 10/30/18 @ 10:13 by Jaun Morales MD) No Social History Section defined Physical Exam - Physical Exam General Appearance: Present: wd/wn, alert, no apparent distress, other - Morbidly obese Head Exam: Present: normal inspection, no evidence of injury Ears, Nose, Throat: Present: normal ENT inspection, normal pharynx Neck: Present: other - Thick and short stature Respiratory: Present: no respiratory distress, normal breath sounds, no accessory muscle use, chest nontender, lungs clear Cardiovascular/Chest: Present: regular rate, rhythm, no murmur, normal peripheral pulses Gastrointestinal/Abdominal: Present: nontender, nondistended, soft, other - morbidly obese, bowel sounds decreased Back Exam: Present: normal inspection Extremity Exam: Present: normal inspection, non-tender, normal range of motion, no edema Neurological Exam: Present: alert, oriented, normal mood/affect, no motor/sensory deficits Skin Exam: Present: normal color, warm/dry Progress - Results and Orders Patient's Lab Results:: I have reviewed the patient's lab results. - CBC - WBC 10.8, Hgb 12.9, Hct 41.6, Plt 280 CMP - 129, Potassium 3.3, BUN 18, Cr 1.15, Glucose 115, Calcium 9.1, AST 18, ALT 22, alk phos 141, Lipid panel: Triglycerides ^ 224, Cholesterol 145, LDL 73, HDL 27, Chol/HDL ratio 5.3, Troponin < 0.017, BNP 29 D-dimer - ^ 0.73 - Vital Signs Patient's Vital Signs:: I have reviewed the patient's vital signs. Vital Signs: Vital Signs 11/11/18 17:59 Temperature 36.4 C Pulse Rate 101 H Respiratory Rate 15 Blood Pressure 153/81 H O2 Sat by Pulse Oximetry 97 - EKG EKG #1 EKG read: Interp. by me - No acute changes - CT/Ultrasound CT/Ultrasound Narrative: CTA chest - negative for PE. No acute thoracic pathology - Progress/Reassessment Chief Complaint: Diabetes Related Problem Progress:: Improved Progress Note-Subjective: 11/11/18 19:04 Test results reviewed with the patient. Sodium level was 139 two weeks ago and is now 129. Denies any C/P or SOB. 11/11/18 20:24 Patient now reports midsternal chest "heaviness". Rates 5/10 Nitroglycerin given and pain improved to 3/10. 11/11/18 20:30 11/11/18 20:35 Patient's case staffed with Dr. Chambers who accepted him for Observation to rule out IN. Telemetry monitoring, serial EKG and Cardiac enzymes. Plan - Plan Plan: Will place on Observation on the floor in Dr. Chambers's care to rule out IN. Departure Clinical Impression: Diabetes 1.5, managed as type 2, Hyponatremia, Morbid obesity with BMI of 60.0- 69.9, adult Chest pain Qualifiers: Chest pain type: unspecified Qualified Code(s): R07.9 - Chest pain, unspecified - Departure Disposition: Still a patient Condition: Good Referrals: Fab Chambers DO [Primary Care Provider] -
[2018-11-11 18:31] LABS: Hematocrit 41.6 % (42.0-52.0); Hemoglobin 12.9 gm/dL (13.5-18.0); Mean Cell Volume 93.1 fl (78-100); Mean Corpuscular Hemoglobin 28.9 pg (27-31); Mean Platelet Volume 8.4 fl (8-11.3); Neutrophil # 9.3 K/mm3 (1.3-6.0); Neutrophil % 86.4 % (42-75.0); Platelet Count 280 K/mm3 (150-450); Red Blood Count 4.47 M/mm3 (4.7-6.0); White Blood Count 10.8 K/mm3 (4.0-10.5)
[2018-11-11 18:42] LABS: Prothrombin Time (Patient) 9.8 Seconds (9.1-10.7)
[2018-11-11 18:43] LABS: INR 0.99 INR (0.92-1.08)
[2018-11-11 18:50] LABS: ALT 22 U/L (19-67); AST 18 U/L (0-48); Albumin * 3.7 gm/dl (3.4-5.0); Alkaline Phosphatase * 141 U/L (50-170); Anion Gap 8.4 mmol/L (6.8-13.8); BNP * 29 pg/mL (5-140); BUN/Creatinine Ratio 15.7 (9.0-21.6); Bilirubin, Total 0.3 mg/dL (0.0-1.1); Blood Urea Nitrogen 18 mg/dL (6-23); Calcium * 9.1 mg/dL (7.9-10.9); Carbon Dioxide 25.9 mmol/L (24-32.6); Chloride 98 mmol/L (97-106); Chol/HDL Risk Ratio 5.3 mg/dL (3.3-5.0); Cholesterol 145 mg/dL (0-200); Glucose * 115 mg/dL (70-110); HDL Cholesterol 27 mg/dL (40-60); LDL Cholesterol 73 mg/dL (70-130); Potassium 3.3 mmol/L (3.4-4.6); Sodium 129 mmol/L (132-142); Total Protein 8.2 gm/dL (6.2-8.2); Triglycerides 224 mg/dL (30-200); VLDL Cholesterol 45 mg/dL (5-40)
[2018-11-11 18:52] LABS: Troponin I Less than 0.017 ng/mL (0.00-0.10)
[2018-11-11] MEDS ORDERED: NITROGLYCERIN 0.4 MG/TAB BTL SL ONE (20:22)
[2018-11-11] MEDS ORDERED: NITROGLYCERIN 0.4 MG/TAB BTL SL PRN (20:45)
[2018-11-12] MEDS ORDERED: NITROGLYCERIN 0.4 MG/TAB BTL SL PRN (11:11)
[2018-11-12] MEDS ORDERED: ALBUTEROL SULFATE 2.5 MG/0.5 ML VIAL.NEB IH PRN (11:11)
[2018-11-12] MEDS ORDERED: ACETAMINOPHEN 325 MG TABLET PO PRN (11:11)
--- NOTE | 2018-11-12 11:31 | HP ---
Chief Complaint - Chief Complaint Date of Service: 11/12/18 Time of Service: 08:50 Chief Complaint: chest pain, R/O AMI, hypoglycemia BS 31 History of Present Illness: Braden Woo is a 48-year-old morbidly obese male who presented to ER with chest pain and an episode of hypoglycemia. The blood sugar became low while he was sleeping and he awakened diaphoretic. Checked his blood sugar and it was 56. He did not eat something right away and checked it again about 15 minutes later and it was down to 31. He then ate some peanut butter and brought his blood sugar back up by the time EMS arrived he was better. He was having ch est discomfort however. He has extensive cardiac history with multiple stents placed and he has an AICD in place. Initial EKGs and troponins are negative. The EKG shows both inferior and anterior wall MIs that are thought to be old. There is no acute changes. He is admitted for acute coronary syndrome to rule out an AMI. 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 Maxed out on the Sulfonourea and can not increase the Metformin due to diarrhea. Pacemaker (Chronic) Gastro-esophageal reflux disease with esophagitis (Chronic) Chest pain (Resolved) Chest pain made worse by breathing (Resolved) Chest wall pain following surgery (Resolved) Colitis Obesity, morbid (more than 100 lbs over ideal weight or BMI > 40) Onset Date: Unknown BMI 40.0 -49.9 Pacemaker Tachycardia Type 2 diabetes mellitus colitis Arthritis Onset Date: Unknown Atherosclerotic heart disease [place] coronary artery w/angina pectoris Onset Date: Unknown Bilateral primary osteoarthritis of knee Onset Date: ~06/24/17 COPD (chronic obstructive pulmonary disease) Onset Date: Unknown Chronic GERD Hyperlipidemia due to dietary fat intake Surgical History: Surgical History (Updated 09/16/18 @ 09:53 by Wen Pena MD) History of placement of internal cardiac defibrillator Onset Date: 03/28/18 Hx of colonoscopy Onset Date: Unknown Has had x7 for ulcerative colitis Hx of flexible sigmoidoscopy Onset Date: ~04/07/12 Hx of right and left heart catheterization Onset Date: Unknown Family History: Family History (Updated 01/02/18 @ 08:27 by Tamy Hughes CMA) Brother Diabetes Hypertension Hyperlipemia Father , @ 65 Myocardial infarction Mother Diabetes Heart disease Sister Seizures Social History: Patient Lives/Resources Brother Utilized 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 Smoking Status Former smoker Have you smoked in the past 12 No months Do you dip or chew tobacco No Abuse History No History of abuse Psych History No pertinent hx Alcohol Use none Drug Use none (Last Updated 10/30/18 @ 10:13 by Jaun Morales MD) No Social History Section defined Review Of Systems (GEN) - Review of Systems Generalized/Overall Review: Present: Diaphoresis EENTM: Present: No Symptoms Reported Respiratory: Present: No Symptoms Reported Cardiac: Present: Chest Pain, Palpitations Abdominal: Present: No Symptoms Reported, Constipation Genitourinary: Present: No Symptoms Reported Musculoskeletal: Present: No Symptoms Reported Neurological: Present: No Symptoms Reported Skin: Present: No Symptoms Reported Endocrine: Present: No Symptoms Reported Misc: All systems neg except as marked Immunizations: IMMUNIZATION HX Immunizations Up to Date Yes History of Influenza Vaccine Yes Hx Pneumococcal Vaccination No Allergies/Adverse Reactions: Allergies Allergy/AdvReac Type Severity Reaction Status Date / Time No Known Allergies Allergy Verified 11/11/18 18:03 Home Medications: HOME MEDICATIONS Cholecalciferol (Vitamin D3) [Vitamin D3] 1,000 unit PO DAILY 09/11/17 [Last Taken 01/10/18] Albuterol Sulfate [Ventolin HFA] 2 puff IH Q4H PRN #1 inhaler 09/12/17 [Last Taken 01/07/18] Nitroglycerin 0.4 mg SL PRN PRN #25 tab.subl 09/12/17 [Last Taken 01/11/18] atorvastatin 20 mg tablet 20 mg PO HS #30 tab 09/04/18 [Last Taken Unknown] insulin detemir (U-100) 100 unit/mL (3 mL) subcutaneous pen 25 unit SUBCUT HS #15 ml 09/04/18 [Last Taken Unknown] lisinopril 20 mg tablet 20 mg PO DAILY #30 tab 09/04/18 [Last Taken Unknown] potassium chloride ER 20 mEq tablet,extended release(part/cryst) 20 meq PO DAILY #30 tablet.sa 09/04/18 [Last Taken Unknown] Aspirin [Aspir-Low] 81 mg PO DAILY 09/15/18 [Last Taken Unknown] glipiZIDE [Glipizide] 5 mg PO BID 09/15/18 [Last Taken Unknown] metformin 500 mg tablet 500 mg PO BID #60 tab 09/27/18 [Last Taken Unknown] carvedilol 12.5 mg tablet 12.5 mg PO DAILY #30 tab 09/28/18 [Last Taken Unknown] dicyclomine 20 mg tablet 20 mg PO QID #120 tab 09/28/18 [Last Taken Unknown] fenoprofen 600 mg tablet 600 mg PO TID #90 tab 09/28/18 [Last Taken Unknown] omeprazole 40 mg capsule,delayed release 40 mg PO DAILY #30 cap 09/28/18 [Last Taken Unknown] sulfasalazine 500 mg tablet 1,500 mg PO TID #270 tab 09/28/18 [Last Taken Unknown] acetaminophen 325 mg tablet 650 mg PO Q6H PRN #90 tab 10/23/18 [Last Taken Unknown] Hydrocortisone Acetate [Anusol Hc Suppository] 25 mg RC BID #28 supp.rect 10/25/18 [Last Taken Unknown] furosemide 80 mg tablet 80 mg PO BID #60 tab 10/27/18 [Last Taken Unknown] spironolactone 25 mg tablet See Rx Instructions .ROUTE .COMPLEX #60 tablet 11/03/18 [Last Taken Unknown] Exam - Exam Vital Signs: Vital Signs - Last Taken Temp 36.7 C 11/12/18 10:58 Pulse 81 11/12/18 10:58 Resp 20 11/12/18 10:58 BP 140/89 H 11/12/18 10:58 Pulse Ox 95 11/12/18 10:58 Constitutional: Present: Alert, Oriented x3, Cooperative, Well developed, Morbidly obese ENT Exam: Present: normal ENT inspection, hearing grossly normal, pharynx normal, TMs normal Eye Exam: bilateral eye: normal inspection, PERRL, EOMI Neck: Present: non-tender, full range of motion, supple Back Exam: Present: normal inspection, no CVA tenderness, no vertebral tenderness Breasts: Present: Exam deferred, Nontender Respiratory: Present: chest non-tender, lungs clear, normal breath sounds, no respiratory distress, no accessory muscle use Cardiovascular/Chest: Present: normal peripheral pulses, regular rate, rhythm, no chest tenderness, no edema, no gallop, no JVD, no murmur, no rub Peripheral Pulses: carotid (R): 2+, carotid (L): 2+, radial (R): 2+, radial (L): 2+ Abdomen: Present: Normal bowel sounds, soft, nontender, nondistended, no rebound tenderness, no hepatospenomegaly, no masses, obese /Rectal: Present: Exam deferred Extremity: Present: normal range of motion, non-tender, normal inspection, no pedal edema, no calf tenderness, normal capillary refill Skin Exam: Present: normal color, warm/dry Lymphatic: Present: no adenopathy 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, normal cerebellar test, no motor/sensory deficits, alert, normal mood/affect, oriented x 3 Appearance: Present: appropriate appearance, appropriate insight, no memory impairment, disheveled Eye contact: Present: cooperative, good eye contact, normal speech Thoughts: Present: normal thought pattern, no apparent hallucination, auditory h allucinations Diagnostic Studies: Abnormal Lab Results 11/11/18 11/11/18 11/11/18 Range/Units 18:24 18:24 18:24 WBC 10.8 H (4.0-10.5) K/mm3 RBC 4.47 L (4.7-6.0) M/mm3 Hgb 12.9 L (13.5-18.0) gm/dL Hct 41.6 L (42.0-52.0) % MCHC 31.0 L (32-36) g/dl RDW 15.0 H (11.5-14.0) % Immature Gran # (Auto) 0.04 H (0.000-0.0310) K/mm3 Neutrophils % 86.4 H (42-75.0) % Lymphocytes % 4.7 L (20-51) % Neutrophils # 9.3 H (1.3-6.0) K/mm3 Lymphocytes # 0.51 L (1.5-3.5) k/mm3 D-Dimer 0.73 H (0.19-0.49) ug/mL Sodium 129 L (132-142) mmol/L Plasma Sodium 129 L (130-142) mmol/L Potassium 3.3 L (3.4-4.6) mmol/L Random Glucose 115 H (70-110) mg/dL Triglycerides 224 H (30-200) mg/dL VLDL Cholesterol 45 H (5-40) mg/dL HDL Cholesterol 27 L (40-60) mg/dL Cholesterol/HDL Ratio 5.3 H (3.3-5.0) mg/dL Laboratory Results WBC 10.8 K/mm3 (4.0-10.5) H 11/11/18 18:24 RBC 4.47 M/mm3 (4.7-6.0) L 11/11/18 18:24 Hgb 12.9 gm/dL (13.5-18.0) L 11/11/18 18:24 Hct 41.6 % (42.0-52.0) L 11/11/18 18:24 MCV 93.1 fl (78-100) 11/11/18 18:24 MCH 28.9 pg (27-31) 11/11/18 18:24 MCHC 31.0 g/dl (32-36) L 11/11/18 18:24 RDW 15.0 % (11.5-14.0) H 11/11/18 18:24 Plt Count 280 K/mm3 (150-450) 11/11/18 18:24 MPV 8.4 fl (8-11.3) 11/11/18 18:24 Immature Gran % (Auto) 0.40 % (0.001-0.429) 11/11/18 18:24 Immature Gran # (Auto) 0.04 K/mm3 (0.000-0.0310) H 11/11/18 18:24 86.4 % (42-75.0) H 11/11/18 18:24 4.7 % (20-51) L 11/11/18 18:24 7.2 % (0.0-9) 11/11/18 18:24 0.8 % (0.0-3.0) 11/11/18 18:24 0.5 % (0.0-1.0) 11/11/18 18:24 Nucleated RBC % 0.0 k/mm3 (0-1) 11/11/18 18:24 9.3 K/mm3 (1.3-6.0) H 11/11/18 18:24 0.51 k/mm3 (1.5-3.5) L 11/11/18 18:24 0.8 k/mm3 (0.0-1.0) 11/11/18 18:24 0.1 k/mm3 (0.0-0.7) 11/11/18 18:24 Absolute Basophils 0.1 k/mm3 (0.0-0.1) 11/11/18 18:24 PT 9.8 Seconds (9.1-10.7) 11/11/18 18:24 INR (Anticoag Therapy) 0.99 INR (0.92-1.08) 11/11/18 18:24 0.73 ug/mL (0.19-0.49) H 11/11/18 18:24 Sodium 129 mmol/L (132-142) L 11/11/18 18:24 129 mmol/L (130-142) L 11/11/18 18:24 Potassium 3.3 mmol/L (3.4-4.6) L 11/11/18 18:24 Chloride 98 mmol/L (97-106) 11/11/18 18:24 Carbon Dioxide 25.9 mmol/L (24-32.6) 11/11/18 18:24 8.4 mmol/L (6.8-13.8) 11/11/18 18:24 BUN 18 mg/dL (6-23) 11/11/18 18:24 1.15 mg/dL (0.4-1.4) 11/11/18 18:24 Est GFR (Non-Af Amer) 72 mL/min (60-130) 11/11/18 18:24 15.7 (9.0-21.6) 11/11/18 18:24 115 mg/dL (70-110) H 11/11/18 18:24 Calcium 9.1 mg/dL (7.9-10.9) 11/11/18 18:24 Calcium Adj for Albumin 9.0 mg/dL (8.4-10.2) 11/11/18 18:24 0.3 mg/dL (0.0-1.1) 11/11/18 18:24 AST 18 U/L (0-48) 11/11/18 18:24 ALT 22 U/L (19-67) 11/11/18 18:24 141 U/L (50-170) 11/11/18 18:24 Less than 0.017 ng/mL (0.00-0.10) 11/12/18 00:20 B-Natriuretic Peptide 29 pg/mL (5-140) 11/11/18 18:24 8.2 gm/dL (6.2-8.2) 11/11/18 18:24 3.7 gm/dl (3.4-5.0) 11/11/18 18:24 Triglycerides 224 mg/dL (30-200) H 11/11/18 18:24 Cholesterol 145 mg/dL (0-200) 11/11/18 18:24 73 mg/dL (70-130) 11/11/18 18:24 45 mg/dL (5-40) H 11/11/18 18:24 27 mg/dL (40-60) L 11/11/18 18:24 5.3 mg/dL (3.3-5.0) H 11/11/18 18:24 Assessment/Plan - Narrative Narrative: 1. Serial troponins and EKGs 2. Monitor blood sugars 3. Anticipate discharge tomorrow afternoon.
[2018-11-12] MEDS: sulfaSALAzine 500 MG TABLET PO SCH ×3 (11:49→17:15)
[2018-11-12] MEDS: DICYCLOMINE HCL 20 MG TABLET PO SCH ×3 (11:51→17:15)
[2018-11-12] MEDS ORDERED: FENOPROFEN CALCIUM 600 MG PO SCH (13:00)
[2018-11-12] MEDS ORDERED: SPIRONOLACTONE 25 MG TABLET PO SCH (14:00)
--- NOTE | 2018-11-12 14:12 | DS ---
(1) Hypoglycemia due to insulin Problem: Acute (2) Angina pectoris Problem: Acute (3) Coronary artery disease Problem: Acute Qualifiers: Coronary Disease-Associated Artery/Lesion type: [place] artery [place] vs. transplanted heart: [place] heart Associated angina: with unstable angina Qualified Code(s): I25.110 - Atherosclerotic heart disease of [place] coronary artery with unstable angina pectoris (4) Morbid obesity with BMI of 60.0-69.9, adult Problem: Chronic Description of Stay: Braden Woo is a 48-year-old morbidly obese white male well-known to me as I am his PCP. He presented to the emergency room after having an episode of hypoglycemia that awakened him. He was diaphoretic. He checked his blood sugar and it was 56. He waited 15 minutes and then the blood sugar was 31. He ate an unknown quantity of peanut butter and brought his blood sugars back up to about 80. During this time he developed chest pain and pressure and had some shortness of breath. He has a long standing history of coronary disease and has had infarctions in both the LAD and the RCA. On arrival in the emergency room his diaphoresis had stopped. He was given a single nitroglycerin which relieved his chest discomfort. He was subsequently evaluated for an IA but the EKG had no acute changes in the first troponin was normal. He was then admitted to general medical floor on telemetry for acute coronary syndrome to rule out an AMI. His hospital stay has been uneventful. He is more concerned about having another low blood sugar. He has nitroglycerin at home but did not use it this morning. His disposition is improved. Prognosis is fair. He will be discharged home this afternoon after supper. Procedures Performed: none Results and Findings: Lab Pending Results 11/11/18 18:24: WBC 10.8 H, RBC 4.47 L, Hgb 12.9 L, Hct 41.6 L, MCV 93.1, MCH 28.9, MCHC 31.0 L, RDW 15.0 H, Plt Count 280, MPV 8.4, Immature Gran % (Auto) 0.40, Immature Gran # (Auto) 0.04 H, Neutrophils % 86.4 H, Lymphocytes % 4.7 L, Monocytes % 7.2, Eosinophils % 0.8, Basophils % 0.5, Nucleated RBC % 0.0, Neutrophils # 9.3 H, Lymphocytes # 0.51 L, Monocytes # 0.8, Eosinophils # 0.1, Absolute Basophils 0.1 11/11/18 18:24: PT 9.8, INR (Anticoag Therapy) 0.99 11/11/18 18:24: Sodium 129 L, Plasma Sodium 129 L, Potassium 3.3 L, Chloride 98, Carbon Dioxide 25.9, Anion Gap 8.4, BUN 18, Creatinine 1.15, Est GFR (Non-Af Amer) 72, BUN/Creatinine Ratio 15.7, Random Glucose 115 H, Calcium 9.1, Calcium Adj for Albumin 9.0, Total Bilirubin 0.3, AST 18, ALT 22, Alkaline Phosphatase 141, Troponin I Less than 0.017, B-Natriuretic Peptide 29, Total Protein 8.2, Albumin 3.7, Triglycerides 224 H, Cholesterol 145, LDL Cholesterol 73, VLDL Cholesterol 45 H, HDL Cholesterol 27 L, Cholesterol/HDL Ratio 5.3 H 11/11/18 18:24: D-Dimer 0.73 H 11/12/18 00:20: Troponin I Less than 0.017 Discharge Location: Home Disposition: Home self-care Condition: Good Discharge Activity: Activity as tolerated Discharge Diet: Consistent carbs Problem Oriented Discharge Instructions to Patient/Family: Chest Wall Pain, [id number], Hypoglycemia, [id number] Additional Patient Instructions (free text): 1. Decrease the Levemir to 20 units and take it in the morning instead of at bedtime. 2. See me in the office within 2 weeks. 3. Continue other medicines as is. Complete Home Medications List: Complete Home Medication List: Cholecalciferol (Vitamin D3) [Vitamin D3] 1,000 unit PO DAILY 09/11/17 Albuterol Sulfate [Ventolin HFA] 2 puff IH Q4H PRN #1 inhaler 09/12/17 Nitroglycerin 0.4 mg SL PRN PRN #25 tab.subl 09/12/17 atorvastatin 20 mg tablet 20 mg PO HS #30 tab 09/04/18 insulin detemir (U-100) 100 unit/mL (3 mL) subcutaneous pen 25 unit SUBCUT HS #15 ml 09/04/18 lisinopril 20 mg tablet 20 mg PO DAILY #30 tab 09/04/18 potassium chloride ER 20 mEq tablet,extended release(part/cryst) 20 meq PO DAILY #30 tablet.sa 09/04/18 Aspirin [Aspir-Low] 81 mg PO DAILY 09/15/18 glipiZIDE [Glipizide] 5 mg PO BID 09/15/18 metformin 500 mg tablet 500 mg PO BID #60 tab 09/27/18 carvedilol 12.5 mg tablet 12.5 mg PO DAILY #30 tab 09/28/18 dicyclomine 20 mg tablet 20 mg PO QID #120 tab 09/28/18 omeprazole 40 mg capsule,delayed release 40 mg PO DAILY #30 cap 09/28/18 sulfasalazine 500 mg tablet 1,500 mg PO TID #270 tab 09/28/18 acetaminophen 325 mg tablet 650 mg PO Q6H PRN #90 tab 10/23/18 Hydrocortisone Acetate [Anusol Hc Suppository] 25 mg RC BID #28 supp.rect 10/25/18 furosemide 80 mg tablet 80 mg PO BID #60 tab 10/27/18 spironolactone 25 mg tablet See Rx Instructions .ROUTE .COMPLEX #60 tablet 11/03/18 Fenoprofen Calcium 600 mg PO TID #90 tab 11/12/18
[2018-11-12] MEDS ORDERED: glipiZIDE 5 MG TABLET PO SCH (17:00)
[2018-11-12 17:49] VITALS: BP 140/90
[2018-11-12] MEDS ORDERED: metFORMIN HCL 500 MG TABLET PO SCH (21:00)
[2018-11-12] MEDS ORDERED: HYDROCORTISONE ACETATE 25 MG SUPP.RECT RC SCH (21:00)
[2018-11-12] MEDS ORDERED: ROSUVASTATIN CALCIUM 10 MG TABLET PO SCH (21:00)
[2018-11-12] MEDS ORDERED: FUROSEMIDE 80 MG TABLET PO SCH (21:00)
[2018-11-12] MEDS ORDERED: INSULIN DETEMIR 100 UNITS/ML VIAL SC SCH (21:00)
[2018-11-13] MEDS ORDERED: PANTOPRAZOLE SODIUM 40 MG TABLET.EC PO SCH (07:00)
[2018-11-13] MEDS ORDERED: POTASSIUM CHLORIDE 20 MEQ TABLET.SA PO SCH (09:00)
[2018-11-13] MEDS ORDERED: LISINOPRIL 20 MG TABLET PO SCH (09:00)
[2018-11-13] MEDS ORDERED: CARVEDILOL 12.5 MG TABLET PO SCH (09:00)
[2018-11-13] MEDS ORDERED: ASPIRIN 81 MG TABLET.DR PO SCH (09:00)
== END 2018-11-12 17:45 | disposition home or self-care (01) ==
LOC: ER 17:57 → MS 17:57
PROVIDERS: ADMIT Family Medicine; ATTEND Family Medicine
DX: E11.9 Type 2 diabetes mellitus without complications; E66.01 Morbid (severe) obesity due to excess calories; Z68.44 Body mass index [BMI] 60.0-69.9, adult; I25.110 Atherosclerotic heart disease of native coronary artery with unstable angina pectoris
CPT/HCPCS: 36415; 71275; 80053; 80061; 83036; 83519; 83880; 84484; 85025; 85379; 85610; 93005; 94660; 99285; G0378; Q9967

== ENCOUNTER 2019-02-16 22:57 | Observation (INO) ==
[2019-02-16 23:18] LABS: Hematocrit 39.3 % (42.0-52.0); Hemoglobin 12.8 gm/dL (13.5-18.0); Mean Cell Volume 90.3 fl (78-100); Mean Corpuscular Hemoglobin 29.4 pg (27-31); Mean Corpuscular Hgb Conc 32.6 g/dl (32-36); Mean Platelet Volume 8.4 fl (8-11.3); Neutrophil # 4.9 K/mm3 (1.3-6.0); Neutrophil % 72.3 % (42-75.0); Platelet Count 245 K/mm3 (150-450); Red Blood Count 4.35 M/mm3 (4.7-6.0); Red Cell Distribution Width 16.1 % (11.5-14.0); White Blood Count 6.7 K/mm3 (4.0-10.5)
[2019-02-16] MEDS ORDERED: MORPHINE SULFATE 4 MG/ML SYRG IV ONE (23:23)
[2019-02-16 23:35] LABS: ALT 15 U/L (19-67); AST 19 U/L (0-48); Albumin * 3.7 gm/dl (3.4-5.0); Alkaline Phosphatase * 127 U/L (50-170); Anion Gap 17.9 mmol/L (6.8-13.8); BUN/Creatinine Ratio 16.6 (9.0-21.6); Bilirubin, Total 0.2 mg/dL (0.0-1.1); Blood Urea Nitrogen 24 mg/dL (6-23); Ca. Corrected For Albumin 8.5 mg/dL (8.4-10.2); Calcium * 8.6 mg/dL (7.9-10.9); Carbon Dioxide 21.8 mmol/L (24-32.6); Chloride 101 mmol/L (97-106); Glucose * 149 mg/dL (70-110); Potassium 3.7 mmol/L (3.4-4.6); Sodium 137 mmol/L (132-142); Total Protein 7.7 gm/dL (6.2-8.2)
[2019-02-16 23:36] LABS: Troponin I Less than 0.017 ng/mL (0.00-0.10)
--- NOTE | 2019-02-17 01:36 | ERNOTE ---
Chest Pain/Cardiac HPI Date of Service: 02/17/19 Chief Complaint: Chest Pain Time Seen by Provider: 02/16/19 23:07 Source: patient Exam Limitations: no limitations Immunizations: IMMUNIZATION HX Immunizations Up to Date Yes History of Influenza Vaccine Yes Hx Pneumococcal Vaccination Yes Allergies/Adverse Reactions: Allergies No Known Allergies Allergy (Verified 02/16/19 23:03) per pt Home Medications: HOME MEDICATIONS Cholecalciferol (Vitamin D3) [Vitamin D3] 1,000 unit PO DAILY 09/11/17 [Last Taken 01/10/18] Albuterol Sulfate [Ventolin HFA] 2 puff IH Q4H PRN #1 inhaler 09/12/17 [Last Taken 01/07/18] Nitroglycerin 0.4 mg SL PRN PRN #25 tab.subl 09/12/17 [Last Taken 01/11/18] lisinopril 20 mg tablet 20 mg PO DAILY #30 tab 09/04/18 [Last Taken Unknown] Aspirin [Aspir-Low] 81 mg PO DAILY 09/15/18 [Last Taken Unknown] metformin 500 mg tablet 500 mg PO BID #60 tab 09/27/18 [Last Taken Unknown] omeprazole 40 mg capsule,delayed release 40 mg PO DAILY #30 cap 09/28/18 [Last Taken Unknown] sulfasalazine 500 mg tablet 1,500 mg PO TID #270 tab 09/28/18 [Last Taken Unknown] acetaminophen 325 mg tablet 650 mg PO Q6H PRN #90 tab 10/23/18 [Last Taken Unknown] Hydrocortisone Acetate [Anusol Hc Suppository] 25 mg RC BID #28 supp.rect 10/25/18 [Last Taken Unknown] furosemide 80 mg tablet 80 mg PO BID #60 tab 10/27/18 [Last Taken Unknown] ibuprofen 800 mg tablet 800 mg PO TID #90 tab 11/22/18 [Last Taken Unknown] pen needle, diabetic 31 gauge x 11/09" See Dose Instructions .ROUTE .MEDSUPPLY #100 ea 11/23/18 [Last Taken Unknown] blood sugar diagnostic strips See Dose Instructions .ROUTE .MEDSUPPLY #100 ea 11/27/18 [Last Taken Unknown] carvedilol 12.5 mg tablet 12.5 mg PO DAILY #30 tab 11/27/18 [Last Taken Unknown] Hospital bed 0 .ROUTE .MEDSUPPLY #1 ea 12/27/18 [Last Taken Unknown] dicyclomine 20 mg tablet 20 mg PO QID #120 tab 12/27/18 [Last Taken Unknown] hospital bed electric 0 .ROUTE .MEDSUPPLY #1 ea 12/27/18 [Last Taken Unknown] lancets 28 gauge See Rx Instructions .ROUTE .COMPLEX #300 unspecified 12/27/18 [Last Taken Unknown] potassium chloride ER 20 mEq tablet,extended release(part/cryst) 20 meq PO DAILY #30 tablet.sa 12/27/18 [Last Taken Unknown] insulin detemir (U-100) 100 unit/mL (3 mL) subcutaneous pen 8 unit SUBCUT HS #15 ml 01/22/19 [Last Taken Unknown] Atorvastatin Calcium [Lipitor] 20 mg PO HS 02/16/19 [Last Taken Unknown] Fenoprofen Calcium 600 mg PO TID 02/16/19 [Last Taken Unknown] Spironolactone 25 mg PO BID 02/16/19 [Last Taken Unknown] Pain Score #1 Pain Score: 8 Narrative: Patient is brought to the ED by EMS [facility] for chest pain. Patient states this is left-sided chest pain that does not radiate but is described as chest pressure. Severe, unrelenting. Was associated with nausea but no vomiting. Is not pleuritic. This came on at rest but continued and was exacerbated when the patient walked. His day was completely normal, was not filled with exertion. Patient was sitting and watching TV when his symptoms came on and he tried to go to bed his symptoms continued. He took 6 nitro at home without relief. Contacted the ambulance who brought him here, he was given 325 mg aspirin in route. This also did not make a difference. The patient does have a cardiac history as well as many other chronic medical issues. He does have a pacer, defibrillator in place. He has congestive heart failure as well as coronary artery disease. He states he does not have any stents placed. Rates the pain as 7-8 out of 10 in severity. Date (Duration): 02/16/19 Time (Timing): 19:00 Timing: constant Severity/Quality: moderate, dull, pressure Location: shoulder, left chest Activities at Onset: none Modifying Factors - Improves: Present: nitroglycerin, morphine Modifying Factors - Worsens: Present: coughing, eating Nitro Today/Relief: provided at home - Patient took 6 nitro at home as well as 325 mg aspirin by ems Associated Symptoms: Present: shortness of breath, nausea. Absent: headache, diaphoresis, vomiting Prior Chest Pain/Cardiac Workup: Reports: prior chest pain, angina, echocardiogram, stress test Prior Treatment: Reports: recently seen Review of Systems - Review of Systems Constitutional: Present: fatigue, weight loss. Absent: no symptoms reported ENT: Present: no symptoms reported Respiratory: Present: shortness of breath Cardiology: Present: chest pain. Absent: edema Gastrointestinal/Abdominal: Present: nausea. Absent: vomiting Musculoskeletal: Present: no symptoms reported Medical History (Updated 02/17/19 @ 02:24 by Juliette Riley MD) Diabetes (Chronic) Hypoglycemia (Acute) Morbid obesity due to excess calories (Chronic) Morbid obesity with BMI of 50.0-59.9, adult (Chronic) BAUDILIO on CPAP (Chronic) Coronary artery disease (Chronic) Gastroparesis due to DM (Chronic) CHF due to valvular disease (Chronic) Edema extremities (Chronic) Uncontrolled diabetes mellitus (Chronic) BSs in the 200. Maxed out on the Sulfonourea and can not increase the Metformin due to diarrhea. Pacemaker (Chronic) Gastro-esophageal reflux disease with esophagitis (Chronic) Chest pain (Resolved) Chest pain made worse by breathing (Resolved) Chest wall pain following surgery (Resolved) Colitis Obesity, morbid (more than 100 lbs over ideal weight or BMI > 40) Onset Date: Unknown BMI 40.0 -49.9 Pacemaker Tachycardia Type 2 diabetes mellitus colitis Arthritis Onset Date: Unknown Atherosclerotic heart disease [place] coronary artery w/angina pectoris Onset Date: Unknown Bilateral primary osteoarthritis of knee Onset Date: ~06/24/17 COPD (chronic obstructive pulmonary disease) Onset Date: Unknown Chronic GERD Hyperlipidemia due to dietary fat intake Surgical History: Surgical History (Updated 09/16/18 @ 09:53 by eWn Pena MD) History of placement of internal cardiac defibrillator Onset Date: 03/28/18 Hx of colonoscopy Onset Date: Unknown Has had x7 for ulcerative colitis Hx of flexible sigmoidoscopy Onset Date: ~04/07/12 Hx of right and left heart catheterization Onset Date: Unknown Family History: Family History (Updated 01/02/18 @ 08:27 by Tamy Hughes CMA) Brother Diabetes Hypertension Hyperlipemia Father , @ 65 Myocardial infarction Mother Diabetes Heart disease Sister Seizures Social History: (Last Reviewed 02/17/19 @ 02:08 by Juliette Riley MD) Social History: Marital status: Single current occupational status: disabled Highest education level completed: high school graduate Service: No Tobacco: Smoking Status: Former smoker Alcohol: alcohol intake: never Substance Use: substance use type: does not use Dietary Habits: caffeine: Yes Physical Exam - Physical Exam General Appearance: Present: wd/wn, alert, no apparent distress Head Exam: Present: normal inspection, no evidence of injury Eye Exam: Normal inspection: bilateral, PERRL: bilateral, EOMI: bilateral Ears, Nose, Throat: Present: normal ENT inspection Neck: Present: normal inspection, nontender Respiratory: Present: no respiratory distress, lungs clear Cardiovascular/Chest: Present: regular rate, rhythm, no murmur, normal peripheral pulses Gastrointestinal/Abdominal: Present: normal bowel sounds, nontender, nondistended Extremity Exam: Present: normal inspection, no edema Neurological Exam: Present: alert, oriented, normal mood/affect Skin Exam: Present: normal color, warm/dry Progress - Results and Orders Patient's Lab Results:: I have reviewed the patient's lab results. Results and Orders: Laboratory Tests 02/16/19 02/16/19 02/16/19 23:10 23:10 23:10 WBC 6.7 Hgb 12.8 L Hct 39.3 L Plt Count 245 D-Dimer 0.62 H Sodium 137 Potassium 3.7 Chloride 101 BUN 24 H Creatinine 1.45 H Est GFR (Non-Af Amer) 55 L D AST 19 ALT 15 L Troponin I Less than 0.017 Laboratory Tests 02/17/19 01:10 Troponin I Less than 0.017 - Vital Signs Patient's Vital Signs:: I have reviewed the patient's vital signs. Vital Signs: Vital Signs 02/16/19 23:00 02/16/19 23:30 02/16/19 23:56 Temperature 36.2 C Pulse Rate 88 89 88 Respiratory Rate 12 20 18 Blood Pressure 114/69 116/74 126/74 O2 Sat by Pulse Oximetry 95 97 98 02/17/19 00:13 02/17/19 00:45 02/17/19 01:12 Temperature Pulse Rate 90 96 89 Respiratory Rate 20 20 20 Blood Pressure 130/77 114/76 124/75 O2 Sat by Pulse Oximetry 97 97 97 - EKG EKG #1 EKG read: Reviewed by me EKG Comments: EKG from today as compared with previous on 02/09/2019 shows absolutely no changes. Normal sinus rhythm, rate is 87. There are some abnormalities, none of these are new. - X-Ray X-Ray #1 X-Ray: chest Interpretation: Interp. by me X-ray Comments: Negative for acute findings - CT/Ultrasound CT/Ultrasound Narrative: CT angios negative for pulmonary embolism, no acute disease in the chest. - Progress/Reassessment Chief Complaint: Chest Pain Progress:: Unchanged Progress Note-Subjective: 02/17/19 02:09 Patient was given morphine only upon arrival here since he had already had maximum dose of nitroglycerin as well as 325 mg of aspirin prior to arrival. He states that this helped his pain somewhat only. He continued to have chest pain throughout his work-up and stay in the ED. Serial troponins x2 were negative, d-dimer was mildly elevated. There was no pulmonary embolism on CTA. He does have risk factors for angina and coronary artery disease. He also has cardiomyopathy, congestive heart failure and a pacer placed. For this reason, I am advising that he be admitted for observation due to the chest pain. Dr. Chambers, on-call was contacted. Departure Clinical Impression: Chest pain Qualifiers: Chest pain type: unspecified Qualified Code(s): R07.9 - Chest pain, unspecified - Departure Disposition: Still a patient Condition: Good
[2019-02-17] MEDS ORDERED: MORPHINE SULFATE 4 MG/ML SYRG IV PRN (02:19)
[2019-02-17] MEDS ORDERED: SUCRALFATE 1 G/10 ML UDC PO ONE (07:22)
[2019-02-17] MEDS ORDERED: PANTOPRAZOLE SODIUM 40 MG TABLET.EC PO ONE (07:24)
[2019-02-17] MEDS ORDERED: ALBUTEROL SULFATE 2.5 MG/0.5 ML VIAL.NEB IH PRN (09:51)
[2019-02-17] MEDS ORDERED: NITROGLYCERIN 0.4 MG/TAB BTL SL PRN (09:51)
[2019-02-17] MEDS ORDERED: ACETAMINOPHEN 325 MG TABLET PO PRN (09:51)
[2019-02-17] MEDS ORDERED: CARVEDILOL 12.5 MG TABLET PO SCH (10:00)
[2019-02-17] MEDS ORDERED: SPIRONOLACTONE 25 MG TABLET PO SCH (10:00)
[2019-02-17] MEDS ORDERED: LISINOPRIL 20 MG TABLET PO SCH (10:00)
[2019-02-17] MEDS ORDERED: metFORMIN HCL 500 MG TABLET PO SCH (10:00)
[2019-02-17] MEDS ORDERED: FUROSEMIDE 80 MG TABLET PO SCH (10:00)
[2019-02-17 10:41] VITALS: BP 123/61
--- NOTE | 2019-02-17 10:41 | DS ---
(1) Esophageal spasm Problem: Acute Date of Discharge:: 02/17/19 Description of Stay: Braden Woo is a 48-year-old morbidly obese white male patient well-known to me. He has insulin-dependent diabetes, history of coronary disease and 2 previous myocardial infarctions. He developed chest pain at home and had taken 6 nitroglycerin without relief and came to the hospital. His evaluation in the emergency room showed serial EKGs with no acute changes and cardiac enzymes with troponin was normal x2. He was admitted for observation very early this morning. His chest discomfort had quieted but by 7:15 AM he was having chest pain that he rated as a 7/10 again. Nursing rechecked an EKG and another troponin which were both unchanged. I had them give him a gram of sucralfate suspension and 40 mg of omeprazole p.o. He received that at about 7:25 AM and by 7:45 AM his chest discomfort was completely gone and I am assuming from the sucralfate. On examination this morning he has tenderness in the right upper quadrant and midepigastrium on deep palpation. There is been no changes in cardiac status. At this time his disposition is improved and his prognosis is good. He will be discharged to home. Procedures Performed: none Results and Findings: Lab Pending Results 02/16/19 23:10: WBC 6.7, RBC 4.35 L, Hgb 12.8 L, Hct 39.3 L, MCV 90.3, MCH 29.4, MCHC 32.6, RDW 16.1 H, Plt Count 245, MPV 8.4, Immature Gran % (Auto) 0.30, Immature Gran # (Auto) 0.02, Neutrophils % 72.3, Lymphocytes % 14.4 L, Monocytes % 10.5 H, Eosinophils % 1.9, Basophils % 0.6, Nucleated RBC % 0.0, Neutrophils # 4.9, Lymphocytes # 0.97 L, Monocytes # 0.7, Eosinophils # 0.1, Absolute Basophils 0.0 02/16/19 23:10: Sodium 137, Plasma Sodium 138, Potassium 3.7, Chloride 101, Carbon Dioxide 21.8 L, Anion Gap 17.9 H, BUN 24 H, Creatinine 1.45 H, Est GFR (Non-Af Amer) 55 L D, BUN/Creatinine Ratio 16.6, Random Glucose 149 H, Calcium 8.6, Calcium Adj for Albumin 8.5, Total Bilirubin 0.2, AST 19, ALT 15 L, Alkaline Phosphatase 127, Troponin I Less than 0.017, Total Protein 7.7, Albumin 3.7 02/16/19 23:10: D-Dimer 0.62 H 02/17/19 01:10: Troponin I Less than 0.017 02/17/19 06:53: Troponin I Less than 0.017 Discharge Location: Home Disposition: Home Health Service Home Health Agency: [facility] Condition: Good Face to Face Encounter completed per [facility] Guidelines: No Discharge Activity: Activity as tolerated Discharge Diet: Consistent carbs Referrals: Fab Chambers DO [Primary Care Provider] - Additional Patient Instructions (free text): Please fax discharge orders call report to [facility], ongoing patient. See Dr. Chambers in the office next or Tuesday. Prescriptions (Any new or edited meds): Sucralfate [Carafate] 1 gm PO ACHS #60 oral.susp Complete Home Medications List: Complete Home Medication List: Cholecalciferol (Vitamin D3) [Vitamin D3] 1,000 unit PO DAILY 09/11/17 Albuterol Sulfate [Ventolin HFA] 2 puff IH Q4H PRN #1 inhaler 09/12/17 Nitroglycerin 0.4 mg SL PRN PRN #25 tab.subl 09/12/17 lisinopril 20 mg tablet 20 mg PO DAILY #30 tab 09/04/18 Aspirin [Aspir-Low] 81 mg PO DAILY 09/15/18 metformin 500 mg tablet 500 mg PO BID #60 tab 09/27/18 omeprazole 40 mg capsule,delayed release 40 mg PO DAILY #30 cap 09/28/18 sulfasalazine 500 mg tablet 1,500 mg PO TID #270 tab 09/28/18 acetaminophen 325 mg tablet 650 mg PO Q6H PRN #90 tab 10/23/18 Hydrocortisone Acetate [Anusol Hc Suppository] 25 mg RC BID #28 supp.rect 10/25/18 furosemide 80 mg tablet 80 mg PO BID #60 tab 10/27/18 ibuprofen 800 mg tablet 800 mg PO TID #90 tab 11/22/18 pen needle, diabetic 31 gauge x 5/16" See Dose Instructions .ROUTE .MEDSUPPLY #100 ea 11/23/18 blood sugar diagnostic strips See Dose Instructions .ROUTE .MEDSUPPLY #100 ea 11/27/18 carvedilol 12.5 mg tablet 12.5 mg PO DAILY #30 tab 11/27/18 Hospital bed 0 .ROUTE .MEDSUPPLY #1 ea 12/27/18 dicyclomine 20 mg tablet 20 mg PO QID #120 tab 12/27/18 hospital bed electric 0 .ROUTE .MEDSUPPLY #1 ea 12/27/18 lancets 28 gauge See Rx Instructions .ROUTE .COMPLEX #300 unspecified 12/27/18 potassium chloride ER 20 mEq tablet,extended release(part/cryst) 20 meq PO DAILY #30 tablet.sa 12/27/18 insulin detemir (U-100) 100 unit/mL (3 mL) subcutaneous pen 8 unit SUBCUT HS #15 ml 01/22/19 Atorvastatin Calcium [Lipitor] 20 mg PO HS 02/16/19 Fenoprofen Calcium 600 mg PO TID 02/16/19 Spironolactone 25 mg PO BID 02/16/19 Sucralfate [Carafate] 1 gm PO ACHS #60 oral.susp 02/17/19
[2019-02-17] MEDS ORDERED: sulfaSALAzine 500 MG TABLET PO SCH (13:00)
[2019-02-17] MEDS ORDERED: DICYCLOMINE HCL 20 MG TABLET PO SCH (13:00)
[2019-02-17] MEDS ORDERED: FENOPROFEN CALCIUM 600 MG PO SCH (13:00)
[2019-02-17] MEDS ORDERED: HYDROCORTISONE ACETATE 25 MG SUPP.RECT RC SCH (21:00)
[2019-02-17] MEDS ORDERED: ROSUVASTATIN CALCIUM 10 MG TABLET PO SCH (21:00)
[2019-02-17] MEDS ORDERED: INSULIN DETEMIR 100 UNITS/ML VIAL SC SCH (21:00)
[2019-02-18] MEDS ORDERED: PANTOPRAZOLE SODIUM 40 MG TABLET.EC PO SCH (07:00)
[2019-02-18] MEDS ORDERED: ASPIRIN 81 MG TABLET.DR PO SCH (09:00)
[2019-02-18] MEDS ORDERED: CHOLECALCIFEROL 1,000 UNIT CAPSULE PO SCH (09:00)
[2019-02-18] MEDS ORDERED: POTASSIUM CHLORIDE 20 MEQ TABLET.SA PO SCH (09:00)
--- NOTE | 2019-02-19 19:29 | HP ---
Chief Complaint - Chief Complaint Date of Service: 02/17/19 Time of Service: 08:00 Chief Complaint: chest pain, history of MIs, diabetes, hypertension History of Present Illness: Braden is a 48-year-old morbidly obese white male who presented with substernal chest pain. He has had 2 heart attacks in the past and knows what it feels like. He was in the emergency room and evaluated and troponins and EKGs were unchanged. Nonetheless he was admitted to observation status to rule out VT because of his past medical history. He had taken 6 nitroglycerin tablets before coming to the emergency room. His chest pain did not resolve. He received some morphine in the emergency room which did help temporarily. He was admitted at about 2:30 in the morning. At about 7:20 AM he started having chest pain and rated it is a 10. A repeat troponin and EKG were done at that time. I spoke with the nurse on the phone and suggested that it was probably GI and he was given a gram of sucralfate suspension and started on Pepcid. He was seen again at 745 by the nurse and he was pain-free. I saw him about 8:00 that morning and he remained pain-free. He had no further episodes of chest discomfort after starting the sucralfate and the Pepcid. Repeat troponin and EKG were unchanged and still normal. Medical History (Updated 02/17/19 @ 10:41 by Fab Chambers DO) Diabetes (Chronic) Hypoglycemia (Acute) Morbid obesity due to excess calories (Chronic) Morbid obesity with BMI of 50.0-59.9, adult (Chronic) BAUDILIO on CPAP (Chronic) Coronary artery disease (Chronic) Gastroparesis due to DM (Chronic) CHF due to valvular disease (Chronic) Edema extremities (Chronic) Uncontrolled diabetes mellitus (Chronic) BSs in the 200. Maxed out on the Sulfonourea and can not increase the Metformin due to diarrhea. Pacemaker (Chronic) Gastro-esophageal reflux disease with esophagitis (Chronic) Chest pain (Resolved) Chest pain made worse by breathing (Resolved) Chest wall pain following surgery (Resolved) Colitis Obesity, morbid (more than 100 lbs over ideal weight or BMI > 40) Onset Date: Unknown BMI 40.0 -49.9 Pacemaker Tachycardia Type 2 diabetes mellitus colitis Arthritis Onset Date: Unknown Atherosclerotic heart disease [place] coronary artery w/angina pectoris Onset Date: Unknown Bilateral primary osteoarthritis of knee Onset Date: ~06/24/17 COPD (chronic obstructive pulmonary disease) Onset Date: Unknown Chronic GERD Hyperlipidemia due to dietary fat intake Surgical History: Surgical History (Updated 09/16/18 @ 09:53 by Wen Pena MD) History of placement of internal cardiac defibrillator Onset Date: 03/28/18 Hx of colonoscopy Onset Date: Unknown Has had x7 for ulcerative colitis Hx of flexible sigmoidoscopy Onset Date: ~04/07/12 Hx of right and left heart catheterization Onset Date: Unknown Family History: Family History (Updated 01/02/18 @ 08:27 by Tamy Hughes CMA) Brother Diabetes Hypertension Hyperlipemia Father , @ 65 Myocardial infarction Mother Diabetes Heart disease Sister Seizures Social History: (Last Reviewed 02/17/19 @ 03:45 by Anny Grant RN) Social History: Marital status: Single current occupational status: disabled Highest education level completed: high school graduate Service: No Tobacco: Smoking Status: Former smoker Alcohol: alcohol intake: never Substance Use: substance use type: does not use Dietary Habits: caffeine: Yes Review Of Systems (GEN) - Review of Systems Generalized/Overall Review: Present: Malaise EENTM: Present: No Symptoms Reported Respiratory: Present: Shortness of Breath - With the chest pain only. Cardiac: Present: Chest Pain Abdominal: Present: Abdominal Pain Genitourinary: Present: No Symptoms Reported Musculoskeletal: Present: No Symptoms Reported Neurological: Present: No Symptoms Reported Skin: Present: No Symptoms Reported Endocrine: Present: No Symptoms Reported Misc: All systems neg except as marked Immunizations: IMMUNIZATION HX Immunizations Up to Date Yes History of Influenza Vaccine Yes Hx Pneumococcal Vaccination Yes Allergies/Adverse Reactions: Allergies Allergy/AdvReac Type Severity Reaction Status Date / Time No Known Allergies Allergy Verified 02/16/19 23:03 Home Medications: HOME MEDICATIONS Cholecalciferol (Vitamin D3) [Vitamin D3] 1,000 unit PO DAILY 09/11/17 [Last Taken 01/10/18] Albuterol Sulfate [Ventolin HFA] 2 puff IH Q4H PRN #1 inhaler 09/12/17 [Last Taken 01/07/18] Nitroglycerin 0.4 mg SL PRN PRN #25 tab.subl 09/12/17 [Last Taken 01/11/18] lisinopril 20 mg tablet 20 mg PO DAILY #30 tab 09/04/18 [Last Taken Unknown] Aspirin [Aspir-Low] 81 mg PO DAILY 09/15/18 [Last Taken Unknown] metformin 500 mg tablet 500 mg PO BID #60 tab 09/27/18 [Last Taken Unknown] omeprazole 40 mg capsule,delayed release 40 mg PO DAILY #30 cap 09/28/18 [Last Taken Unknown] sulfasalazine 500 mg tablet 1,500 mg PO TID #270 tab 09/28/18 [Last Taken Unknown] acetaminophen 325 mg tablet 650 mg PO Q6H PRN #90 tab 10/23/18 [Last Taken Unknown] Hydrocortisone Acetate [Anusol Hc Suppository] 25 mg RC BID #28 supp.rect 10/25/18 [Last Taken Unknown] furosemide 80 mg tablet 80 mg PO BID #60 tab 10/27/18 [Last Taken Unknown] ibuprofen 800 mg tablet 800 mg PO TID #90 tab 11/22/18 [Last Taken Unknown] pen needle, diabetic 31 gauge x 5/16" See Dose Instructions .ROUTE .MEDSUPPLY #100 ea 11/23/18 [Last Taken Unknown] blood sugar diagnostic strips See Dose Instructions .ROUTE .MEDSUPPLY #100 ea 11/27/18 [Last Taken Unknown] carvedilol 12.5 mg tablet 12.5 mg PO DAILY #30 tab 11/27/18 [Last Taken Unknown] Hospital bed 0 .ROUTE .MEDSUPPLY #1 ea 12/27/18 [Last Taken Unknown] dicyclomine 20 mg tablet 20 mg PO QID #120 tab 12/27/18 [Last Taken Unknown] hospital bed electric 0 .ROUTE .MEDSUPPLY #1 ea 12/27/18 [Last Taken Unknown] lancets 28 gauge See Rx Instructions .ROUTE .COMPLEX #300 unspecified 12/27/18 [Last Taken Unknown] potassium chloride ER 20 mEq tablet,extended release(part/cryst) 20 meq PO DAILY #30 tablet.sa 12/27/18 [Last Taken Unknown] insulin detemir (U-100) 100 unit/mL (3 mL) subcutaneous pen 8 unit SUBCUT HS #15 ml 01/22/19 [Last Taken Unknown] Atorvastatin Calcium [Lipitor] 20 mg PO HS 02/16/19 [Last Taken Unknown] Fenoprofen Calcium 600 mg PO TID 02/16/19 [Last Taken Unknown] Spironolactone 25 mg PO BID 02/16/19 [Last Taken Unknown] Sucralfate [Carafate] 1 gm PO ACHS #60 oral.susp 02/17/19 [Last Taken Unknown] Exam - Exam Vital Signs: Vital Signs - Last Taken Temp 36.8 C 02/17/19 10:46 Pulse 77 02/17/19 10:46 Resp 20 02/17/19 10:46 BP 123/61 02/17/19 10:46 Pulse Ox 95 02/17/19 10:46 Constitutional: Present: Alert, Oriented x3, Cooperative, Well developed, Well nourished, Middle aged, Morbidly obese ENT Exam: Present: normal ENT inspection, hearing grossly normal, pharynx normal , TMs normal Eye Exam: bilateral eye: normal inspection, PERRL, EOMI Neck: Present: non-tender, full range of motion Back Exam: Present: normal inspection, no CVA tenderness, no vertebral tenderness Respiratory: Present: chest non-tender, lungs clear, normal breath sounds, no respiratory distress, no accessory muscle use Cardiovascular/Chest: Present: normal peripheral pulses, regular rate, rhythm, no chest tenderness, no edema, no gallop Peripheral Pulses: carotid (R): 2+, carotid (L): 2+, radial (R): 2+, radial (L): 2+ Abdomen: Present: Normal bowel sounds, soft, obese, tender - In the midepigastrium and especially the right hypochondrium. He also has some mild discomfort in the left hypochondrium on deep palpation. /Rectal: Present: Exam deferred Extremity: Present: normal range of motion, non-tender, normal inspection, no pedal edema, no calf tenderness, normal capillary refill Skin Exam: Present: normal color, warm/dry, no cyanosis Lymphatic: Present: no adenopathy Neurologic: Present: vehicle service agent II-XII nml as tested, normal cerebellar test, no motor/sensory deficits, alert, normal mood/affect, oriented x 3 Appearance: Present: appropriate appearance, appropriate insight, no memory impairment, disheveled Eye contact: Present: cooperative, good eye contact, normal speech, avoids eye contact Thoughts: Present: normal thought pattern, no apparent hallucination Diagnostic Studies: Laboratory Results WBC 6.7 K/mm3 (4.0-10.5) 02/16/19 23:10 RBC 4.35 M/mm3 (4.7-6.0) L 02/16/19 23:10 Hgb 12.8 gm/dL (13.5-18.0) L 02/16/19 23:10 Hct 39.3 % (42.0-52.0) L 02/16/19 23:10 MCV 90.3 fl (78-100) 02/16/19 23:10 MCH 29.4 pg (27-31) 02/16/19 23:10 MCHC 32.6 g/dl (32-36) 02/16/19 23:10 RDW 16.1 % (11.5-14.0) H 02/16/19 23:10 Plt Count 245 K/mm3 (150-450) 02/16/19 23:10 MPV 8.4 fl (8-11.3) 02/16/19 23:10 Immature Gran % (Auto) 0.30 % (0.001-0.429) 02/16/19 23:10 Immature Gran # (Auto) 0.02 K/mm3 (0.000-0.0310) 02/16/19 23:10 72.3 % (42-75.0) 02/16/19 23:10 14.4 % (20-51) L 02/16/19 23:10 10.5 % (0.0-9) H 02/16/19 23:10 1.9 % (0.0-3.0) 02/16/19 23:10 0.6 % (0.0-1.0) 02/16/19 23:10 Nucleated RBC % 0.0 k/mm3 (0-1) 02/16/19 23:10 4.9 K/mm3 (1.3-6.0) 02/16/19 23:10 0.97 k/mm3 (1.5-3.5) L 02/16/19 23:10 0.7 k/mm3 (0.0-1.0) 02/16/19 23:10 0.1 k/mm3 (0.0-0.7) 02/16/19 23:10 Absolute Basophils 0.0 k/mm3 (0.0-0.1) 02/16/19 23:10 0.62 ug/mL (0.19-0.49) H 02/16/19 23:10 Sodium 137 mmol/L (132-142) 02/16/19 23:10 138 mmol/L (130-142) 02/16/19 23:10 Potassium 3.7 mmol/L (3.4-4.6) 02/16/19 23:10 Chloride 101 mmol/L (97-106) 02/16/19 23:10 Carbon Dioxide 21.8 mmol/L (24-32.6) L 02/16/19 23:10 17.9 mmol/L (6.8-13.8) H 02/16/19 23:10 BUN 24 mg/dL (6-23) H 02/16/19 23:10 1.45 mg/dL (0.4-1.4) H 02/16/19 23:10 Est GFR (Non-Af Amer) 55 mL/min (60-130) L D 02/16/19 23:10 16.6 (9.0-21.6) 02/16/19 23:10 149 mg/dL (70-110) H 02/16/19 23:10 Calcium 8.6 mg/dL (7.9-10.9) 02/16/19 23:10 Calcium Adj for Albumin 8.5 mg/dL (8.4-10.2) 02/16/19 23:10 0.2 mg/dL (0.0-1.1) 02/16/19 23:10 AST 19 U/L (0-48) 02/16/19 23:10 ALT 15 U/L (19-67) L 02/16/19 23:10 127 U/L (50-170) 02/16/19 23:10 Less than 0.017 ng/mL (0.00-0.10) 02/17/19 06:53 7.7 gm/dL (6.2-8.2) 02/16/19 23:10 3.7 gm/dl (3.4-5.0) 02/16/19 23:10 Assessment/Plan - Narrative Narrative: Braden is stable at time of my examination and is in no distress. He ate breakfast without any difficulty. He has been up to the bathroom without difficulty. He will have serial cardiac enzymes and EKGs and have continuous cardiac monitoring until at discharge home which will probably be this afternoon. His chest pain is better with GI treatment. - Assessment/Plan (1) Esophageal spasm Problem: Acute (2) Chest pain Problem: Acute Qualifiers: Chest pain type: unspecified Qualified Code(s): R07.9 - Chest pain, unspecified (3) History of myocardial infarction Problem: Acute (4) Diabetes 1.5, managed as type 2 Problem: Chronic (5) Morbid obesity due to excess calories Problem: Chronic (6) Ruled out for myocardial infarction Problem: Acute
== END 2019-02-17 11:46 | disposition home health service (06) ==
LOC: MS 22:57 → ER 22:57 → MS 02-17 03:20
PROVIDERS: ADMIT Family Medicine; ATTEND Family Medicine
DX: K22.4 Dyskinesia of esophagus
CPT/HCPCS: 36415; 71020; 71046; 71275; 80053; 84484; 85025; 85379; 93005; 94660; 96374; 99285; G0378; Q9967